=== PATIENT | male | born 1950 | race Hispanic/Latino ===

== ENCOUNTER 2017-02-11 12:59 | Observation (INO) | payer MEDICAID, OTHER ==
[~2017-02-11] VITALS: Ht 170.2 cm; Wt 73.6 kg
[~2017-02-11 12:59] MED LIST: GLIP5TAB11 PO
[2017-02-11 13:21] LABS: BASOPHILS % (AUTO) 0.3 % (0.0-5.0); HEMATOCRIT 26.1 % (42-54); LYMPHOCYTES % (AUTO) 18.1 % (21.0-51.0); MEAN CORPUSCULAR HEMOGLOBIN 30.6 pg (27.0-33.0); MEAN CORPUSCULAR HGB CONC 33.8 g/dL (32.0-36.0); MEAN CORPUSCULAR VOLUME 90.6 fL (79-99); MONOCYTES % (AUTO) 8.3 % (3.0-13.0); NEUTROPHILS % (AUTO) 69.3 % (40.0-77.0); PLATELET COUNT (AUTO) 338 K/uL (130-400); RED BLOOD CELL COUNT(AUTO) 2.88 MIL/uL (4.50-6.20); RED CELL DISTRIBUTION WIDTH 14.2 % (11.0-15.5)
[2017-02-11] MEDS ORDERED: IPRATROPIUM/ALBUTEROL SULFATE 3 ML SOLUTION IH ONE (13:26)
[2017-02-11 13:31] LABS: INR 1.03 (0.85-1.15); PARTIAL THROMBOPLASTIN TIME 31.7 SEC (26.3-35.5); PROTHROMBIN TIME 10.8 SEC (9.6-11.6)
[2017-02-11 13:33] LABS: CREATININE 2.1 mg/dL (0.5-1.5); POTASSIUM 4.8 mmol/L (3.5-5.1)
[2017-02-11 13:48] LABS: ALBUMIN 3.1 g/dL (3.5-5.0); BILIRUBIN,TOTAL 0.4 mg/dL (0.2-1.0); CREATINE KINASE MB 1.3 ng/mL (0.5-3.6); TOTAL PROTEIN, SERUM 7.7 g/dL (6.0-8.3)
[2017-02-11] MEDS ORDERED: FUROSEMIDE 10 MG/ML 4ML VIAL ONE ×2 (15:56→20:31)
[2017-02-11] MEDS ORDERED: NITROGLYCERIN 1GM/1 INCH PACKET TD ONE (15:56)
[2017-02-11] MEDS ORDERED: ACETAMINOPHEN-CODEINE 300/30MG TAB PO PRN (16:30)
[2017-02-11] MEDS ORDERED: ACETAMINOPHEN 325 MG TAB PO PRN ×2 (16:30)
[2017-02-11] MEDS ORDERED: ONDANSETRON HCL 4 MG/2 ML VIAL IV PRN (16:30)
[2017-02-11] MEDS ORDERED: GUAIFENESIN-DM 200/20 MG 10 ML PO PRN (16:30)
[2017-02-11] MEDS ORDERED: LACTULOSE 20 GM/30 ML UDCUP PO PRN (16:30)
[2017-02-11] MEDS ORDERED: MAG HYDROX/AL HYDROX/SIMETH ES 30 ML SUSP UDCUP PO PRN (16:30)
[2017-02-11] MEDS: IPRATROPIUM/ALBUTEROL SULFATE 3 ML SOLUTION IH SCH (18:24)
[2017-02-11] MEDS ORDERED: FUROSEMIDE 10 MG/ML 4ML VIAL IVP SCH (21:00)
[2017-02-11 21:20] VITALS: BP 172/58
[2017-02-11] MEDS ORDERED: HYDRALAZINE HCL 20 MG/ML VIAL IV PRN (22:00)
[2017-02-11] MEDS: NITROGLYCERIN 1GM/1 INCH PACKET TD SCH (22:30)
[2017-02-11 22:40] LABS: CREATINE KINASE MB 0.8 ng/mL (0.5-3.6); TROPONIN I 0.31 ng/mL (0.00-0.06)
[2017-02-12] VITALS: BP 179/58
[2017-02-12] MEDS: IPRATROPIUM/ALBUTEROL SULFATE 3 ML SOLUTION IH SCH ×4 (00:48→19:12)
[2017-02-12 04:00] VITALS: BP 174/68
[2017-02-12 05:22] LABS: HEMOGLOBIN A1C 5.5 % (4.0-6.0)
[2017-02-12 05:40] LABS: CREATINE KINASE MB 0.9 ng/mL (0.5-3.6); THYROID STIMULATING HORMONE 6.86 uIU/mL (0.36-3.74); TROPONIN I 0.36 ng/mL (0.00-0.06)
[2017-02-12] MEDS: NITROGLYCERIN 1GM/1 INCH PACKET TD SCH ×3 (06:04→20:56)
[2017-02-12] MEDS: INSULIN HUMULIN R 100 UNIT/ML 3ML SQ SCH ×4 (06:08→21:52)
[2017-02-12 07:34] VITALS: BP 163/57
[2017-02-12 08:46] LABS: POTASSIUM 4.4 mmol/L (3.5-5.1)
[2017-02-12] MEDS: PANTOPRAZOLE SODIUM 40 MG TABLET.DR PO SCH (09:21)
[2017-02-12] MEDS: ENOXAPARIN SODIUM 30 MG/0.3 ML SQ SCH (09:21)
[2017-02-12 11:29] VITALS: BP 161/56
[2017-02-12] MEDS ORDERED: AMLO5TAB2 PO (14:43)
[2017-02-12 16:00] VITALS: BP 180/58
[2017-02-12 19:55] VITALS: BP 155/51
[2017-02-13] MEDS: IPRATROPIUM/ALBUTEROL SULFATE 3 ML SOLUTION IH SCH ×3 (00:06→10:56)
[2017-02-13 00:19] VITALS: BP 169/53
[2017-02-13 04:08] VITALS: BP 136/50
[2017-02-13 04:21] LABS: CREATININE 2.2 mg/dL (0.5-1.5); POTASSIUM 4.9 mmol/L (3.5-5.1)
[2017-02-13] MEDS: NITROGLYCERIN 1GM/1 INCH PACKET TD SCH ×2 (05:31→13:45)
[2017-02-13] MEDS: INSULIN HUMULIN R 100 UNIT/ML 3ML SQ SCH ×2 (06:15→12:26)
[2017-02-13 07:00] VITALS: BP 164/56
[2017-02-13] MEDS ORDERED: GLIPIZIDE 5 MG TABLET PO SCH (09:00)
[2017-02-13] MEDS ORDERED: FUROSEMIDE 10 MG/ML 4ML VIAL IVP SCH (09:00)
[2017-02-13] MEDS ORDERED: AMLODIPINE BESYLATE 5 MG TAB PO SCH ×2 (09:00)
[2017-02-13] MEDS ORDERED: FUROSEMIDE 20 MG TABLET PO SCH (09:00)
[2017-02-13] MEDS: PANTOPRAZOLE SODIUM 40 MG TABLET.DR PO SCH (10:01)
[2017-02-13] MEDS: ENOXAPARIN SODIUM 30 MG/0.3 ML SQ SCH (10:03)
[2017-02-13 11:00] VITALS: BP 163/58
== END 2017-02-13 15:15 | disposition home or self-care (01) ==
LOC: EDH 12:59 → EDHIP 13:00 → 2AH 20:48
PROVIDERS: ADMIT Family Medicine; ATTEND Family Medicine
DX: R06.02 Shortness of breath (principal); R07.89 Other chest pain; I12.9 Hypertensive chronic kidney disease with stage 1 through stage 4 chronic kidney disease, or unspecified chronic kidney disease; N18.9 Chronic kidney disease, unspecified; E11.22 Type 2 diabetes mellitus with diabetic chronic kidney disease; D64.9 Anemia, unspecified; Z83.3 Family history of diabetes mellitus
CPT/HCPCS: 36415 ×3; 71020; 80048 ×2; 80053; 82550 ×3; 82553 ×3; 82948 ×4; 83036; 83874 ×2; 83880; 84443; 84484 ×3; 85025; 85610; 85730; 87804 ×2; 93005; 93306; 94640 ×9; 94664; 96372 ×2; 96374; 99285; G0378 ×50; J0360; J1650 ×2; J1815 ×3; J1940 ×3

== ENCOUNTER 2017-04-08 23:23 | Inpatient (IN) | payer MEDICARE ==
[~2017-04-08] VITALS: Ht 170.2 cm; Wt 79.4 kg
[~2017-04-08 23:23] MED LIST changes: +AMLO5TAB2 PO
[2017-04-08] MEDS ORDERED: ASPIRIN 325 MG TABLET ONE (23:43)
[2017-04-08 23:49] LABS: BASOPHILS % (AUTO) 0.2 % (0.0-5.0); EOSINOPHILS % (AUTO) 0.9 % (0.0-8.0); HEMATOCRIT 27.4 % (42-54); LYMPHOCYTES % (AUTO) 11.9 % (21.0-51.0); MEAN CORPUSCULAR HEMOGLOBIN 30.4 pg (27.0-33.0); MEAN CORPUSCULAR HGB CONC 33.4 g/dL (32.0-36.0); MONOCYTES % (AUTO) 7.4 % (3.0-13.0); NEUTROPHILS % (AUTO) 79.6 % (40.0-77.0); PLATELET COUNT (AUTO) 186 K/uL (130-400); RED BLOOD CELL COUNT(AUTO) 3.02 MIL/uL (4.50-6.20); WHITE BLOOD COUNT (AUTO) 12.6 K/uL (4.8-10.8)
[2017-04-08 23:54] LABS: CREATININE 1.9 mg/dL (0.5-1.5); POTASSIUM 4.9 mmol/L (3.5-5.1)
[2017-04-09 00:06] LABS: INR 0.99 (0.85-1.15); PARTIAL THROMBOPLASTIN TIME 29.8 SEC (26.3-35.5); PROTHROMBIN TIME 10.4 SEC (9.6-11.6)
[2017-04-09] MEDS ORDERED: NITROGLYCERIN 0.4 MG SL TAB SL ONE (00:07)
[2017-04-09 00:23] LABS: ALBUMIN 3.3 g/dL (3.5-5.0); BILIRUBIN,TOTAL 0.3 mg/dL (0.2-1.0); CREATINE KINASE MB 1.2 ng/mL (0.5-3.6)
[2017-04-09] MEDS ORDERED: NITROGLYCERIN 1GM/1 INCH PACKET TD ONE ×2 (01:53→15:55)
[2017-04-09] MEDS ORDERED: METOPROLOL TARTRATE 50 MG TAB ONE (01:53)
[2017-04-09] MEDS ORDERED: ONDANSETRON HCL 4 MG/2 ML VIAL IV PRN (06:30)
[2017-04-09 06:40] LABS: CREATINE KINASE MB 1.6 ng/mL (0.5-3.6)
[2017-04-09] MEDS ORDERED: ENOXAPARIN SODIUM 40 MG/0.4 ML SYRINGE SQ ONE (07:37)
[2017-04-09] MEDS ORDERED: ASPIRIN 325 MG TABLET ONE (07:37)
[2017-04-09] MEDS ORDERED: ENOXAPARIN SODIUM 40 MG/0.4 ML SYRINGE SQ SCH (09:00)
[2017-04-09 10:12] LABS: POTASSIUM 5.5 mmol/L (3.5-5.1)
[2017-04-09 12:10] LABS: CREATINE KINASE MB 1.7 ng/mL (0.5-3.6)
[2017-04-09] MEDS: NITROGLYCERIN 1GM/1 INCH PACKET TD SCH ×3 (15:03→21:32)
[2017-04-09] MEDS: INSULIN HUMULIN R 100 UNIT/ML 3ML SQ SCH ×4 (15:03→21:00)
[2017-04-09] MEDS: ASPIRIN 325 MG TABLET PO SCH (15:05)
[2017-04-09] MEDS ORDERED: METOPROLOL TARTRATE 25 MG TAB ONE (16:05)
[2017-04-09] MEDS ORDERED: SODIUM POLYSTYRENE SULFONATE 15 GM/60 ML ML ONE (16:17)
[2017-04-09] MEDS: METOPROLOL TARTRATE 25 MG TAB PO SCH ×2 (17:00→19:45)
[2017-04-09] MEDS: FAMOTIDINE/PF 20 MG/2 ML VIAL IV SCH (17:00)
[2017-04-09 17:10] VITALS: BP 195/65
[2017-04-09] MEDS: HYDRALAZINE HCL 20 MG/ML VIAL IV PRN (17:15)
[2017-04-09] MEDS ORDERED: ASPI-1197 PO (17:22)
[2017-04-09] MEDS ORDERED: FERR-82 PO (17:22)
[2017-04-09] MEDS ORDERED: TERA5CAP4 PO (17:22)
[2017-04-09 18:12] VITALS: BP 158/63
[2017-04-09 19:53] VITALS: BP 161/58
[2017-04-09 23:36] VITALS: BP 136/61
[2017-04-10 03:30] VITALS: BP 121/42
[2017-04-10 04:29] LABS: CREATINE KINASE MB 2.5 ng/mL (0.5-3.6); CREATININE 2.1 mg/dL (0.5-1.5); POTASSIUM 4.9 mmol/L (3.5-5.1)
[2017-04-10 05:13] LABS: TROPONIN I 0.75 ng/mL (0.00-0.06)
[2017-04-10] MEDS: INSULIN HUMULIN R 100 UNIT/ML 3ML SQ SCH ×4 (05:39→22:12)
[2017-04-10] MEDS: NITROGLYCERIN 1GM/1 INCH PACKET TD SCH ×3 (05:51→22:18)
[2017-04-10 08:00] VITALS: BP 162/58
[2017-04-10] MEDS: REGADENOSON 0.4 MG/5 ML PF SYG IVP SCH ×2 (09:45→17:55)
[2017-04-10] MEDS ORDERED: LORAZEPAM 2 MG/ML 1 ML VIAL ONE (09:50)
[2017-04-10] MEDS ORDERED: LORAZEPAM 2 MG/ML 1 ML VIAL IM SCH (10:00)
[2017-04-10 12:23] VITALS: BP 161/64
[2017-04-10] MEDS: METOPROLOL TARTRATE 25 MG TAB PO SCH ×2 (15:03→21:08)
[2017-04-10] MEDS: ASPIRIN 325 MG TABLET PO SCH (15:04)
[2017-04-10] MEDS: ENOXAPARIN SODIUM 40 MG/0.4 ML SYRINGE SQ SCH (15:06)
[2017-04-10] MEDS: FAMOTIDINE/PF 20 MG/2 ML VIAL IV SCH (15:07)
[2017-04-10 16:00] VITALS: BP 158/44
[2017-04-10 19:50] VITALS: BP 171/54
[2017-04-10 23:30] VITALS: BP 176/85
[2017-04-11] MEDS: HYDRALAZINE HCL 20 MG/ML VIAL IV PRN (00:26)
[2017-04-11 00:55] LABS: APPEARANCE,URINE Turbid (CLEAR); BILIRUBIN,URINE Negative (NEGATIVE); COLOR,URINE Yellow (YELLOW); GLUCOSE, URINE (UA) Negative (NEGATIVE); KETONES,URINE Negative (NEGATIVE); LEUKOCYTE ESTERASE ,URINE Large (NEGATIVE); NITRATE,URINE Negative (NEGATIVE); OCCULT BLOOD,URINE Large (NEGATIVE); PROTEIN,URINE POS 2+ (NEGATIVE)
[2017-04-11 01:21] LABS: BACTERIA,URINE Moderate /HPF (None Seen); RBC,URINE 26-50 /HPF (0-1); WBC,URINE Full Field /HPF (0-1)
[2017-04-11 01:22] LABS: SQUAMOUS EPITHELIAL CELL,UR Rare /LPF (0-2)
[2017-04-11 03:05] VITALS: BP 128/59
[2017-04-11 04:08] LABS: HEMATOCRIT 26.7 % (42-54); MEAN CORPUSCULAR HEMOGLOBIN 30.3 pg (27.0-33.0); MEAN CORPUSCULAR HGB CONC 33.7 g/dL (32.0-36.0); PLATELET COUNT (AUTO) 250 K/uL (130-400); RED BLOOD CELL COUNT(AUTO) 2.96 MIL/uL (4.50-6.20); RED CELL DISTRIBUTION WIDTH 14.2 % (11.0-15.5); WHITE BLOOD COUNT (AUTO) 23.6 K/uL (4.8-10.8)
[2017-04-11 04:20] LABS: CREATININE 2.4 mg/dL (0.5-1.5); POTASSIUM 4.4 mmol/L (3.5-5.1)
[2017-04-11 04:46] LABS: % IRON SATURATION 7.4 % (30-44)
[2017-04-11] MEDS: NITROGLYCERIN 1GM/1 INCH PACKET TD SCH ×3 (06:42→16:50)
[2017-04-11] MEDS: INSULIN HUMULIN R 100 UNIT/ML 3ML SQ SCH ×4 (06:51→21:00)
[2017-04-11 08:02] VITALS: BP 173/70
[2017-04-11] MEDS ORDERED: IPRATROPIUM/ALBUTEROL SULFATE 3 ML SOLUTION IH PRN (08:45)
[2017-04-11] MEDS ORDERED: LEVOFLOXACIN 500 MG/D5W 100 ML 100 ML IV SCH ×2 (08:45→08:51)
[2017-04-11] MEDS ORDERED: ACETAMINOPHEN 325 MG TAB ONE (09:41)
[2017-04-11] MEDS: ASPIRIN 325 MG TABLET PO SCH (09:45)
[2017-04-11] MEDS: AMLODIPINE BESYLATE 5 MG TAB PO SCH (09:45)
[2017-04-11] MEDS: FOLIC ACID/VITAMIN B COMP W-C 1 MG CAPSULE PO SCH (09:45)
[2017-04-11] MEDS: TERAZOSIN HCL 5 MG CAPSULE PO SCH (09:45)
[2017-04-11] MEDS: METOPROLOL TARTRATE 25 MG TAB PO SCH ×2 (09:45→20:38)
[2017-04-11] MEDS: FERROUS SULFATE 325 MG TABLET.DR PO SCH (09:45)
[2017-04-11] MEDS: ENOXAPARIN SODIUM 40 MG/0.4 ML SYRINGE SQ SCH (09:49)
[2017-04-11] MEDS: FAMOTIDINE/PF 20 MG/2 ML VIAL IV SCH (09:54)
[2017-04-11 11:39] VITALS: BP 115/74
[2017-04-11 16:00] VITALS: BP 98/58
[2017-04-11] MEDS ORDERED: ACETAMINOPHEN 325 MG TAB PO PRN ×2 (19:15)
[2017-04-11 19:50] VITALS: BP 110/69
[2017-04-11] MEDS: CEFTRIAXONE SODIUM 1 GM IVP SCH (20:37)
[2017-04-11] MEDS ORDERED: CEFTRIAXONE 1GM/D5W 50ML 50 ML IV SCH (21:00)
[2017-04-11 23:48] VITALS: BP 135/49
[2017-04-12] MEDS: NITROGLYCERIN 1GM/1 INCH PACKET TD SCH ×3 (01:36→16:46)
[2017-04-12 03:47] VITALS: BP 153/47
[2017-04-12 04:27] LABS: HEMATOCRIT 22.5 % (42-54); MEAN CORPUSCULAR HEMOGLOBIN 31.5 pg (27.0-33.0); PLATELET COUNT (AUTO) 200 K/uL (130-400); RED CELL DISTRIBUTION WIDTH 13.6 % (11.0-15.5); WHITE BLOOD COUNT (AUTO) 12.7 K/uL (4.8-10.8)
[2017-04-12 04:28] LABS: CREATININE 3.2 mg/dL (0.5-1.5); POTASSIUM 3.9 mmol/L (3.5-5.1)
[2017-04-12 04:37] LABS: BAND NEUTROPHILS % (MANUAL) 3 % (0-2); LYMPHOCYTES % (MANUAL) 10 % (22-44); MAN.DIFF COMMENT-IMPRESSION MANUAL DIFFERENTIAL; MONOCYTES % (MANUAL) 2 % (2-9); PLATELET MORPHOLOGY COMMENT ADEQUATE; SEGMENTED NEUTROPHILS % 85 % (40-70)
[2017-04-12] MEDS: INSULIN HUMULIN R 100 UNIT/ML 3ML SQ SCH ×4 (06:21→21:18)
[2017-04-12 07:27] VITALS: BP_SYST 164; BP_DIAS 51; BP_DIAS 75
[2017-04-12] MEDS: ASPIRIN 325 MG TABLET PO SCH (08:24)
[2017-04-12] MEDS: TERAZOSIN HCL 5 MG CAPSULE PO SCH (08:24)
[2017-04-12] MEDS: FERROUS SULFATE 325 MG TABLET.DR PO SCH (08:24)
[2017-04-12] MEDS: FOLIC ACID/VITAMIN B COMP W-C 1 MG CAPSULE PO SCH (08:25)
[2017-04-12] MEDS: METOPROLOL TARTRATE 25 MG TAB PO SCH ×2 (08:25→20:52)
[2017-04-12] MEDS: FAMOTIDINE/PF 20 MG/2 ML VIAL IV SCH (08:25)
[2017-04-12] MEDS: AMLODIPINE BESYLATE 5 MG TAB PO SCH (08:25)
[2017-04-12] MEDS: ENOXAPARIN SODIUM 40 MG/0.4 ML SYRINGE SQ SCH (08:26)
[2017-04-12] MEDS ORDERED: LEVOFLOXACIN 250 MG/D5W 50ML 50 ML IVPB SCH (09:00)
[2017-04-12 11:12] VITALS: BP 134/41
[2017-04-12] MEDS ORDERED: SODIUM CHLORIDE 0.9% 500ML 500 ML IV SCH (11:55)
[2017-04-12 12:50] LABS: HEMATOCRIT 22.9 % (42-54); MEAN CORPUSCULAR HEMOGLOBIN 31.6 pg (27.0-33.0); MEAN CORPUSCULAR HGB CONC 34.9 g/dL (32.0-36.0); MEAN CORPUSCULAR VOLUME 90.6 fL (79-99); PLATELET COUNT (AUTO) 220 K/uL (130-400); RED BLOOD CELL COUNT(AUTO) 2.53 MIL/uL (4.50-6.20); RED CELL DISTRIBUTION WIDTH 13.8 % (11.0-15.5); WHITE BLOOD COUNT (AUTO) 12.5 K/uL (4.8-10.8)
[2017-04-12 13:02] LABS: CREATININE 3.7 mg/dL (0.5-1.5); POTASSIUM 4.1 mmol/L (3.5-5.1)
[2017-04-12 13:08] LABS: INR 1.06 (0.85-1.15); PARTIAL THROMBOPLASTIN TIME 38.1 SEC (26.3-35.5); PROTHROMBIN TIME 11.1 SEC (9.6-11.6)
[2017-04-12 16:12] VITALS: BP 120/45
[2017-04-12 19:27] VITALS: BP 154/50
[2017-04-12] MEDS: CEFTRIAXONE SODIUM 1 GM IVP SCH (20:51)
[2017-04-12 23:38] VITALS: BP 144/49
[2017-04-13 03:42] VITALS: BP 154/56
[2017-04-13 04:03] LABS: CREATININE 3.4 mg/dL (0.5-1.5); MAGNESIUM 2.2 mg/dL (1.80-2.40); PHOSPHORUS 5.3 mg/dL (2.5-4.9); POTASSIUM 3.7 mmol/L (3.5-5.1)
[2017-04-13 04:28] LABS: HEMATOCRIT 21.6 % (42-54); MEAN CORPUSCULAR HEMOGLOBIN 31.7 pg (27.0-33.0); MEAN CORPUSCULAR HGB CONC 35.6 g/dL (32.0-36.0); PLATELET COUNT (AUTO) 216 K/uL (130-400); RED BLOOD CELL COUNT(AUTO) 2.43 MIL/uL (4.50-6.20); RED CELL DISTRIBUTION WIDTH 13.7 % (11.0-15.5); WHITE BLOOD COUNT (AUTO) 8.3 K/uL (4.8-10.8)
[2017-04-13 04:30] LABS: BASOPHILS % (MANUAL) 1 % (0-2); EOSINOPHILS % (MANUAL) 1 % (1-6); LYMPHOCYTES % (MANUAL) 17 % (22-44); MAN.DIFF COMMENT-IMPRESSION MANUAL DIFFERENTIAL; MONOCYTES % (MANUAL) 5 % (2-9); REACTIVE LYMPHOCYTES 1 % (0-0); SEGMENTED NEUTROPHILS % 75 % (40-70)
[2017-04-13 04:31] LABS: PLATELET MORPHOLOGY COMMENT ADEQUATE
[2017-04-13] MEDS: NITROGLYCERIN 1GM/1 INCH PACKET TD SCH ×3 (05:23→17:22)
[2017-04-13] MEDS: INSULIN HUMULIN R 100 UNIT/ML 3ML SQ SCH ×4 (06:39→21:14)
[2017-04-13 07:00] VITALS: BP 146/56
[2017-04-13] MEDS: FAMOTIDINE/PF 20 MG/2 ML VIAL IV SCH (09:41)
[2017-04-13] MEDS: ASPIRIN 325 MG TABLET PO SCH (09:41)
[2017-04-13] MEDS: TERAZOSIN HCL 5 MG CAPSULE PO SCH (09:42)
[2017-04-13] MEDS: FERROUS SULFATE 325 MG TABLET.DR PO SCH (09:42)
[2017-04-13] MEDS: METOPROLOL TARTRATE 25 MG TAB PO SCH ×2 (09:42→21:13)
[2017-04-13] MEDS: AMLODIPINE BESYLATE 5 MG TAB PO SCH (09:42)
[2017-04-13] MEDS: FOLIC ACID/VITAMIN B COMP W-C 1 MG CAPSULE PO SCH (09:42)
[2017-04-13] MEDS: ENOXAPARIN SODIUM 40 MG/0.4 ML SYRINGE SQ SCH (09:44)
[2017-04-13] MEDS ORDERED: EPOETIN ALFA 20,000 UNIT/ML VIAL SQ SCH (10:30)
[2017-04-13 11:00] VITALS: BP 139/61
[2017-04-13 16:00] VITALS: BP 133/44
[2017-04-13 19:30] VITALS: BP 128/48
[2017-04-13] MEDS: CEFTRIAXONE SODIUM 1 GM IVP SCH (21:12)
[2017-04-13 23:14] VITALS: BP 128/41
[2017-04-14] MEDS: NITROGLYCERIN 1GM/1 INCH PACKET TD SCH ×3 (00:07→17:20)
[2017-04-14 03:56] VITALS: BP 140/30
[2017-04-14 04:11] LABS: HEMATOCRIT 23.3 % (42-54); MEAN CORPUSCULAR HEMOGLOBIN 31.7 pg (27.0-33.0); MEAN CORPUSCULAR HGB CONC 35.3 g/dL (32.0-36.0); PLATELET COUNT (AUTO) 245 K/uL (130-400); RED BLOOD CELL COUNT(AUTO) 2.59 MIL/uL (4.50-6.20); RED CELL DISTRIBUTION WIDTH 13.7 % (11.0-15.5); WHITE BLOOD COUNT (AUTO) 6.4 K/uL (4.8-10.8)
[2017-04-14 04:28] LABS: CREATININE 3.1 mg/dL (0.5-1.5)
[2017-04-14 04:54] LABS: % IRON SATURATION 19.7 % (30-44)
[2017-04-14] MEDS: INSULIN HUMULIN R 100 UNIT/ML 3ML SQ SCH ×5 (06:02→21:27)
[2017-04-14 07:00] VITALS: BP 143/56
[2017-04-14] MEDS: METOPROLOL TARTRATE 25 MG TAB PO SCH ×2 (08:49→21:25)
[2017-04-14] MEDS: TERAZOSIN HCL 5 MG CAPSULE PO SCH (08:49)
[2017-04-14] MEDS: FAMOTIDINE/PF 20 MG/2 ML VIAL IV SCH (08:49)
[2017-04-14] MEDS: FOLIC ACID/VITAMIN B COMP W-C 1 MG CAPSULE PO SCH (08:49)
[2017-04-14] MEDS: ASPIRIN 325 MG TABLET PO SCH (08:49)
[2017-04-14] MEDS: FERROUS SULFATE 325 MG TABLET.DR PO SCH (08:49)
[2017-04-14] MEDS: AMLODIPINE BESYLATE 5 MG TAB PO SCH (08:49)
[2017-04-14] MEDS: ENOXAPARIN SODIUM 40 MG/0.4 ML SYRINGE SQ SCH (08:51)
[2017-04-14 11:00] VITALS: BP 132/62
[2017-04-14] MEDS ORDERED: COMPOUND IV MISC 1 EACH IVSOLN MISC PRN (13:15)
[2017-04-14] MEDS: IRON SUCROSE COMPLEX 100 MG in SODIUM CHLORIDE 0.9% 50 ML IV SCH (14:43)
[2017-04-14 16:00] VITALS: BP 145/48
[2017-04-14 19:41] VITALS: BP 147/42
[2017-04-14] MEDS: CEFTRIAXONE SODIUM 1 GM IVP SCH (21:25)
[2017-04-14 23:22] VITALS: BP 154/53
[2017-04-15] MEDS: NITROGLYCERIN 1GM/1 INCH PACKET TD SCH ×2 (00:09→08:58)
[2017-04-15 04:08] VITALS: BP 141/60
[2017-04-15 04:08] LABS: CREATININE 2.9 mg/dL (0.5-1.5); POTASSIUM 4.1 mmol/L (3.5-5.1)
[2017-04-15 04:15] LABS: HEMATOCRIT 23.1 % (42-54); MEAN CORPUSCULAR HEMOGLOBIN 30.7 pg (27.0-33.0); MEAN CORPUSCULAR HGB CONC 34.4 g/dL (32.0-36.0); MEAN CORPUSCULAR VOLUME 89.2 fL (79-99); PLATELET COUNT (AUTO) 243 K/uL (130-400); RED BLOOD CELL COUNT(AUTO) 2.59 MIL/uL (4.50-6.20); RED CELL DISTRIBUTION WIDTH 13.7 % (11.0-15.5); WHITE BLOOD COUNT (AUTO) 6.6 K/uL (4.8-10.8)
[2017-04-15] MEDS: INSULIN HUMULIN R 100 UNIT/ML 3ML SQ SCH ×2 (06:45→12:15)
[2017-04-15 08:00] VITALS: BP 175/63
[2017-04-15] MEDS: TERAZOSIN HCL 5 MG CAPSULE PO SCH (08:56)
[2017-04-15] MEDS: IRON SUCROSE COMPLEX 100 MG in SODIUM CHLORIDE 0.9% 50 ML IV SCH (08:56)
[2017-04-15] MEDS: FOLIC ACID/VITAMIN B COMP W-C 1 MG CAPSULE PO SCH (08:56)
[2017-04-15] MEDS: AMLODIPINE BESYLATE 5 MG TAB PO SCH (08:56)
[2017-04-15] MEDS: ASPIRIN 325 MG TABLET PO SCH (08:56)
[2017-04-15] MEDS: METOPROLOL TARTRATE 25 MG TAB PO SCH (08:56)
[2017-04-15] MEDS: FAMOTIDINE/PF 20 MG/2 ML VIAL IV SCH (08:57)
[2017-04-15] MEDS: FERROUS SULFATE 325 MG TABLET.DR PO SCH (08:58)
[2017-04-15] MEDS ORDERED: ENOXAPARIN SODIUM 60 MG/0.6 ML SQ SCH (09:00)
[2017-04-15] MEDS ORDERED: METO25 PO (09:24)
[2017-04-15 11:57] VITALS: BP 134/51
== END 2017-04-15 16:33 | disposition home or self-care (01) | DRG 871 ==
LOC: EDH 23:23 → OBSVTOIN 04-09 01:38 → EDHIP 04-09 01:38 → 2AH 04-09 16:11
PROVIDERS: ADMIT Internal Medicine; ATTEND Internal Medicine
DX: A41.9 Sepsis, unspecified organism (principal); J18.9 Pneumonia, unspecified organism; I21.9 Acute myocardial infarction, unspecified; I13.0 Hypertensive heart and chronic kidney disease with heart failure and stage 1 through stage 4 chronic kidney disease, or unspecified chronic kidney disease; N17.9 Acute kidney failure, unspecified; E11.21 Type 2 diabetes mellitus with diabetic nephropathy; I50.32 Chronic diastolic (congestive) heart failure; N39.0 Urinary tract infection, site not specified; E11.51 Type 2 diabetes mellitus with diabetic peripheral angiopathy without gangrene; D63.1 Anemia in chronic kidney disease; E11.22 Type 2 diabetes mellitus with diabetic chronic kidney disease; I25.119 Atherosclerotic heart disease of native coronary artery with unspecified angina pectoris; E78.5 Hyperlipidemia, unspecified; I65.23 Occlusion and stenosis of bilateral carotid arteries; N18.3 Chronic kidney disease, stage 3 (moderate); I25.2 Old myocardial infarction
CPT/HCPCS: 36415; 71045; 76770; 78452; 80048; 80053; 80061; 81001; 82550; 82553; 82728; 82948; 83540; 83550; 83735; 83874; 83880; 84100; 84484; 85025; 85027; 85378; 85610; 85730; 87040; 87088; 87186; 93005; 93017; 93880; 94664; 96374; A4218; A9500; J0360; J0696; J0885; J1650; J1756; J1815; J1956; J2060; J2785; J3490

== ENCOUNTER 2017-10-28 10:00 | Emergency (ER) | payer MEDICARE ==
[~2017-10-28 10:00] MED LIST changes: -AMLO5TAB2 PO; +AMLO5TAB7 PO; +ASPI-1197 PO; +FERR-82 PO; +METO25 PO; +TERA5CAP4 PO
[2017-10-28] MEDS ORDERED: LISINOPRIL 5 MG TABLET ONE (10:54)
[2017-10-28 10:56] LABS: BASOPHILS % (AUTO) 0.4 % (0.0-5.0); HEMATOCRIT 32.9 % (42-54); LYMPHOCYTES % (AUTO) 26.6 % (21.0-51.0); MEAN CORPUSCULAR HEMOGLOBIN 32.4 pg (27.0-33.0); MEAN CORPUSCULAR HGB CONC 34.2 g/dL (32.0-36.0); MEAN CORPUSCULAR VOLUME 94.7 fL (79-99); MONOCYTES % (AUTO) 6.9 % (3.0-13.0); NEUTROPHILS % (AUTO) 63.1 % (40.0-77.0); PLATELET COUNT (AUTO) 296 K/uL (130-400); RED BLOOD CELL COUNT(AUTO) 3.47 MIL/uL (4.50-6.20); RED CELL DISTRIBUTION WIDTH 13.7 % (11.0-15.5)
[2017-10-28] MEDS ORDERED: LABETALOL HCL 5 MG/ML 20ML VIAL IV ONE (11:00)
[2017-10-28 11:03] LABS: CREATININE 2.3 mg/dL (0.5-1.5); POTASSIUM 5.8 mmol/L (3.5-5.1)
[2017-10-28 11:09] LABS: ALBUMIN 3.5 g/dL (3.5-5.0); BILIRUBIN,TOTAL 0.5 mg/dL (0.2-1.0); TOTAL PROTEIN, SERUM 7.4 g/dL (6.0-8.3)
[2017-10-28 11:41] LABS: INR 0.93 (0.85-1.15); PARTIAL THROMBOPLASTIN TIME 27.1 SEC (26.3-35.5); PROTHROMBIN TIME 9.8 SEC (9.6-11.6)
[2017-10-28 11:49] LABS: AMPHET/METH SCREEN,URINE NEGATIVE (NEGATIVE); BARBITURATE SCREEN, URINE NEGATIVE (NEGATIVE); BENZODIAZEPINES SCREEN,URINE NEGATIVE (NEGATIVE); CANNABINOID SCREEN,URINE NEGATIVE (NEGATIVE); COCAINE SCREEN,URINE POSITIVE (NEGATIVE); OPIATE SCREEN,URINE NEGATIVE (NEGATIVE); PHENCYCLIDINE SCREEN,URINE NEGATIVE (NEGATIVE)
[2017-10-28] MEDS ORDERED: FUROSEMIDE 20 MG TABLET ONE (12:45)
== END 2017-10-28 13:03 | disposition home or self-care (01) ==
LOC: EDH 10:00
DX: I16.1 Hypertensive emergency (principal); I12.9 Hypertensive chronic kidney disease with stage 1 through stage 4 chronic kidney disease, or unspecified chronic kidney disease; N18.9 Chronic kidney disease, unspecified; I24.8 Other forms of acute ischemic heart disease; F14.10 Cocaine abuse, uncomplicated; I25.10 Atherosclerotic heart disease of native coronary artery without angina pectoris
CPT/HCPCS: 36415; 71045; 80053; 80305; 83880; 84484; 85025; 85610; 85730; 93005; 96374; 99291; J3490

== ENCOUNTER 2017-11-01 20:07 | Inpatient (IN) | payer MEDICARE ==
[~2017-11-01] VITALS: Ht 170.2 cm; Wt 77.1 kg
[2017-11-01] MEDS ORDERED: ASPIRIN 325 MG TABLET ONE (20:19)
[2017-11-01 20:31] LABS: BASOPHILS % (AUTO) 0.3 % (0.0-5.0); EOSINOPHILS % (AUTO) 1.5 % (0.0-8.0); HEMATOCRIT 29.6 % (42-54); LYMPHOCYTES % (AUTO) 35.4 % (21.0-51.0); MEAN CORPUSCULAR HEMOGLOBIN 31.2 pg (27.0-33.0); MEAN CORPUSCULAR HGB CONC 33.4 g/dL (32.0-36.0); MEAN CORPUSCULAR VOLUME 93.5 fL (79-99); MONOCYTES % (AUTO) 9.3 % (3.0-13.0); NEUTROPHILS % (AUTO) 53.5 % (40.0-77.0); PLATELET COUNT (AUTO) 188 K/uL (130-400); RED BLOOD CELL COUNT(AUTO) 3.17 MIL/uL (4.50-6.20); RED CELL DISTRIBUTION WIDTH 13.6 % (11.0-15.5); WHITE BLOOD COUNT (AUTO) 5.8 K/uL (4.8-10.8)
[2017-11-01 20:43] LABS: AMPHET/METH SCREEN,URINE NEGATIVE (NEGATIVE); BARBITURATE SCREEN, URINE NEGATIVE (NEGATIVE); BENZODIAZEPINES SCREEN,URINE NEGATIVE (NEGATIVE); CANNABINOID SCREEN,URINE NEGATIVE (NEGATIVE); COCAINE SCREEN,URINE POSITIVE (NEGATIVE); CREATININE 2.5 mg/dL (0.5-1.5); OPIATE SCREEN,URINE NEGATIVE (NEGATIVE); PHENCYCLIDINE SCREEN,URINE NEGATIVE (NEGATIVE)
[2017-11-01 20:45] LABS: INR 0.97 (0.85-1.15); PARTIAL THROMBOPLASTIN TIME 29.2 SEC (26.3-35.5); PROTHROMBIN TIME 10.2 SEC (9.6-11.6)
[2017-11-01 20:49] LABS: APPEARANCE,URINE Cloudy (CLEAR); BILIRUBIN,URINE Negative (NEGATIVE); COLOR,URINE Yellow (YELLOW); GLUCOSE, URINE (UA) Negative (NEGATIVE); KETONES,URINE Negative (NEGATIVE); LEUKOCYTE ESTERASE ,URINE Large (NEGATIVE); NITRATE,URINE Positive (NEGATIVE); OCCULT BLOOD,URINE Moderate (NEGATIVE); PH,URINE 5.5 (5.0-8.0); PROTEIN,URINE 300 (NEGATIVE); UROBILINOGEN,URINE 0.2 mg/dL (0.2-1.0)
[2017-11-01 21:00] LABS: BILIRUBIN,TOTAL 0.2 mg/dL (0.2-1.0); CREATINE KINASE MB 1.4 ng/mL (0.5-3.6); TOTAL PROTEIN, SERUM 6.7 g/dL (6.0-8.3)
[2017-11-01 21:04] LABS: WBC,URINE >100 /HPF (0-1)
[2017-11-01 21:05] LABS: BACTERIA,URINE Moderate /HPF (None Seen); SQUAMOUS EPITHELIAL CELL,UR Rare /HPF (0-2)
[2017-11-01] MEDS ORDERED: IPRATROPIUM/ALBUTEROL SULFATE 3 ML SOLUTION IH ONE (21:20)
[2017-11-01] MEDS ORDERED: CEFTRIAXONE SODIUM 1 GM ONE (23:16)
[2017-11-02] MEDS ORDERED: ACETAMINOPHEN 325 MG TAB PO PRN (00:15)
[2017-11-02] MEDS ORDERED: GLUCAGON 1MG KIT 1 MG ML IM PRN (00:15)
[2017-11-02] MEDS ORDERED: DEXTROSE 50%-WATER 50 ML DISP.SYRIN IV PRN (00:15)
[2017-11-02] MEDS ORDERED: CLONIDINE HCL 0.1 MG TABLET ONE ×2 (00:17→03:27)
[2017-11-02] MEDS: IPRATROPIUM/ALBUTEROL SULFATE 3 ML SOLUTION IH SCH ×5 (01:26→23:16)
[2017-11-02] MEDS ORDERED: IPRATROPIUM/ALBUTEROL SULFATE 3 ML SOLUTION IH ONE (01:29)
[2017-11-02 03:00] VITALS: BP 180/71
[2017-11-02] MEDS ORDERED: CLONIDINE HCL 0.1 MG TABLET PO PRN (03:45)
[2017-11-02 05:45] LABS: BASOPHILS % (AUTO) 0.3 % (0.0-5.0); EOSINOPHILS % (AUTO) 0.8 % (0.0-8.0); HEMATOCRIT 25.9 % (42-54); LYMPHOCYTES % (AUTO) 23.1 % (21.0-51.0); MEAN CORPUSCULAR HEMOGLOBIN 32.6 pg (27.0-33.0); MEAN CORPUSCULAR HGB CONC 34.7 g/dL (32.0-36.0); MEAN CORPUSCULAR VOLUME 93.9 fL (79-99); MONOCYTES % (AUTO) 6.8 % (3.0-13.0); PLATELET COUNT (AUTO) 184 K/uL (130-400); RED BLOOD CELL COUNT(AUTO) 2.76 MIL/uL (4.50-6.20); RED CELL DISTRIBUTION WIDTH 13.7 % (11.0-15.5); WHITE BLOOD COUNT (AUTO) 5.4 K/uL (4.8-10.8)
[2017-11-02 06:02] LABS: ALBUMIN 2.7 g/dL (3.5-5.0); BILIRUBIN,TOTAL 0.2 mg/dL (0.2-1.0); CREATININE 2.6 mg/dL (0.5-1.5); POTASSIUM 4.7 mmol/L (3.5-5.1); TOTAL PROTEIN, SERUM 5.9 g/dL (6.0-8.3)
[2017-11-02 07:00] VITALS: BP 171/76
[2017-11-02] MEDS: INSULIN R PO SS1 SQ SCH ×4 (07:30→21:00)
[2017-11-02] MEDS ORDERED: FUROSEMIDE 20 MG TABLET PO SCH (09:00)
[2017-11-02] MEDS: AMLODIPINE BESYLATE 5 MG TAB PO SCH (10:31)
[2017-11-02] MEDS: TERAZOSIN HCL 5 MG CAPSULE PO SCH (10:31)
[2017-11-02] MEDS: METOPROLOL TARTRATE 25 MG TAB PO SCH ×2 (10:33→21:12)
[2017-11-02] MEDS: ASPIRIN 81MG TAB.CHEW PO SCH (10:34)
[2017-11-02] MEDS: FERROUS SULFATE 325 MG TABLET.DR PO SCH (10:34)
[2017-11-02] MEDS: GLIPIZIDE 5 MG TABLET PO SCH (10:46)
[2017-11-02] MEDS ORDERED: FUROSEMIDE 10 MG/ML 4ML VIAL ONE (10:57)
[2017-11-02] MEDS: FUROSEMIDE 10 MG/ML 4ML VIAL IV SCH (11:00)
[2017-11-02 11:17] LABS: CHOLESTEROL 92 mg/dL (<200); HDL CHOLESTEROL 25 mg/dL (29-71); LDL DIRECT 54 mg/dL (0-99); TRIGLYCERIDES 100 mg/dL (30-200)
[2017-11-02 11:48] VITALS: BP 130/44
[2017-11-02] MEDS: ISOSORBIDE MONO 60 MG TAB.SR PO SCH (15:11)
[2017-11-02 15:35] VITALS: BP 130/77
[2017-11-02 19:00] VITALS: BP 126/73
[2017-11-02] MEDS: ATORVASTATIN CALCIUM 20 MG TABLET PO SCH (21:12)
[2017-11-02 23:00] VITALS: BP 142/47
[2017-11-03] MEDS: FUROSEMIDE 10 MG/ML 4ML VIAL IV SCH (00:42)
[2017-11-03] MEDS: CEFTRIAXONE SODIUM 1 GM IVP SCH ×2 (00:42→23:07)
[2017-11-03 03:00] VITALS: BP 159/63
[2017-11-03 05:06] LABS: BASOPHILS % (AUTO) 0.1 % (0.0-5.0); EOSINOPHILS % (AUTO) 0.4 % (0.0-8.0); HEMATOCRIT 24.7 % (42-54); LYMPHOCYTES % (AUTO) 33.6 % (21.0-51.0); MEAN CORPUSCULAR HEMOGLOBIN 32.1 pg (27.0-33.0); MEAN CORPUSCULAR HGB CONC 34.2 g/dL (32.0-36.0); MEAN CORPUSCULAR VOLUME 93.7 fL (79-99); MONOCYTES % (AUTO) 7.9 % (3.0-13.0); PLATELET COUNT (AUTO) 151 K/uL (130-400); RED BLOOD CELL COUNT(AUTO) 2.64 MIL/uL (4.50-6.20); RED CELL DISTRIBUTION WIDTH 13.4 % (11.0-15.5)
[2017-11-03 05:22] LABS: CREATININE 3.1 mg/dL (0.5-1.5); MAGNESIUM 1.7 mg/dL (1.80-2.40); PHOSPHORUS 4.7 mg/dL (2.5-4.9); POTASSIUM 5.2 mmol/L (3.5-5.1)
[2017-11-03] MEDS: INSULIN R PO SS1 SQ SCH ×4 (06:28→21:00)
[2017-11-03] MEDS: IPRATROPIUM/ALBUTEROL SULFATE 3 ML SOLUTION IH SCH ×4 (06:35→23:32)
[2017-11-03 07:44] VITALS: BP 115/84
[2017-11-03] MEDS: FOLIC ACID/VITAMIN B COMP W-C 1 MG CAPSULE PO SCH (09:54)
[2017-11-03] MEDS: AMLODIPINE BESYLATE 5 MG TAB PO SCH (09:55)
[2017-11-03] MEDS: ISOSORBIDE MONO 60 MG TAB.SR PO SCH (09:55)
[2017-11-03] MEDS: FUROSEMIDE 40 MG TABLET PO SCH ×2 (09:56→20:13)
[2017-11-03] MEDS: METOPROLOL TARTRATE 25 MG TAB PO SCH ×2 (09:56→23:07)
[2017-11-03] MEDS: FERROUS SULFATE 325 MG TABLET.DR PO SCH (09:56)
[2017-11-03] MEDS: TERAZOSIN HCL 5 MG CAPSULE PO SCH (09:56)
[2017-11-03] MEDS: GLIPIZIDE 5 MG TABLET PO SCH (09:57)
[2017-11-03] MEDS: ASPIRIN 81MG TAB.CHEW PO SCH (09:57)
[2017-11-03] MEDS ORDERED: MAGNESIUM 2GM PREMIX 50ML 50 ML IV PRN (11:15)
[2017-11-03 11:27] VITALS: BP 109/49
[2017-11-03] MEDS ORDERED: SODIUM POLYSTYRENE SULFONATE 15 GM/60 ML ML PO ONE (11:30)
[2017-11-03 16:00] VITALS: BP 147/77
[2017-11-03] MEDS ORDERED: SODIUM POLYSTYRENE SULFONATE 15 GM/60 ML ML ONE (19:55)
[2017-11-03 20:07] VITALS: BP 153/49
[2017-11-03] MEDS: ATORVASTATIN CALCIUM 20 MG TABLET PO SCH (23:07)
[2017-11-04 00:04] VITALS: BP 156/56
[2017-11-04 03:37] VITALS: BP 145/56
[2017-11-04 06:12] LABS: MAGNESIUM 2.2 mg/dL (1.80-2.40); POTASSIUM 4.8 mmol/L (3.5-5.1)
[2017-11-04] MEDS: IPRATROPIUM/ALBUTEROL SULFATE 3 ML SOLUTION IH SCH ×3 (06:34→18:17)
[2017-11-04] MEDS: INSULIN R PO SS1 SQ SCH ×4 (06:50→21:00)
[2017-11-04 08:00] VITALS: BP 150/55
[2017-11-04] MEDS: FERROUS SULFATE 325 MG TABLET.DR PO SCH (08:28)
[2017-11-04] MEDS: FUROSEMIDE 40 MG TABLET PO SCH ×2 (08:28→17:08)
[2017-11-04] MEDS: AMLODIPINE BESYLATE 5 MG TAB PO SCH (08:28)
[2017-11-04] MEDS: TERAZOSIN HCL 5 MG CAPSULE PO SCH (08:28)
[2017-11-04] MEDS: ASPIRIN 81MG TAB.CHEW PO SCH (08:28)
[2017-11-04] MEDS: ISOSORBIDE MONO 60 MG TAB.SR PO SCH (08:29)
[2017-11-04] MEDS: FOLIC ACID/VITAMIN B COMP W-C 1 MG CAPSULE PO SCH (08:29)
[2017-11-04] MEDS: METOPROLOL TARTRATE 25 MG TAB PO SCH ×2 (08:29→21:16)
[2017-11-04] MEDS: GLIPIZIDE 5 MG TABLET PO SCH (08:29)
[2017-11-04 11:43] VITALS: BP 149/56
[2017-11-04 16:00] VITALS: BP 138/57
[2017-11-04 19:20] VITALS: BP 150/44
[2017-11-04] MEDS: ATORVASTATIN CALCIUM 20 MG TABLET PO SCH (21:16)
[2017-11-04] MEDS: CEFTRIAXONE SODIUM 1 GM IVP SCH (23:27)
[2017-11-05 00:05] VITALS: BP 142/52
[2017-11-05] MEDS: IPRATROPIUM/ALBUTEROL SULFATE 3 ML SOLUTION IH SCH ×3 (00:12→11:32)
[2017-11-05 04:22] VITALS: BP 140/53
[2017-11-05 05:01] LABS: HEMATOCRIT 24.1 % (42-54); MEAN CORPUSCULAR HEMOGLOBIN 31.5 pg (27.0-33.0); MEAN CORPUSCULAR HGB CONC 34.3 g/dL (32.0-36.0); PLATELET COUNT (AUTO) 144 K/uL (130-400); RED BLOOD CELL COUNT(AUTO) 2.62 MIL/uL (4.50-6.20); RED CELL DISTRIBUTION WIDTH 13.2 % (11.0-15.5); WHITE BLOOD COUNT (AUTO) 4.7 K/uL (4.8-10.8)
[2017-11-05 05:09] LABS: CREATININE 3.1 mg/dL (0.5-1.5); POTASSIUM 4.4 mmol/L (3.5-5.1)
[2017-11-05] MEDS: INSULIN R PO SS1 SQ SCH ×2 (07:16→11:29)
[2017-11-05 08:37] VITALS: BP 159/52
[2017-11-05] MEDS: GLIPIZIDE 5 MG TABLET PO SCH (08:43)
[2017-11-05] MEDS: ISOSORBIDE MONO 60 MG TAB.SR PO SCH (08:44)
[2017-11-05] MEDS: FOLIC ACID/VITAMIN B COMP W-C 1 MG CAPSULE PO SCH (08:44)
[2017-11-05] MEDS: FERROUS SULFATE 325 MG TABLET.DR PO SCH (08:44)
[2017-11-05] MEDS: FUROSEMIDE 40 MG TABLET PO SCH (08:44)
[2017-11-05] MEDS: METOPROLOL TARTRATE 25 MG TAB PO SCH (08:44)
[2017-11-05] MEDS: TERAZOSIN HCL 5 MG CAPSULE PO SCH (08:44)
[2017-11-05] MEDS: ASPIRIN 81MG TAB.CHEW PO SCH (08:44)
[2017-11-05] MEDS: AMLODIPINE BESYLATE 5 MG TAB PO SCH (08:45)
[2017-11-05 12:13] VITALS: BP 154/58
[2017-11-05] MEDS ORDERED: IRON SUCROSE COMPLEX 300 MG in SODIUM CHLORIDE 0.9% 50 ML IV SCH (13:00)
[2017-11-05] MEDS ORDERED: EPOETIN ALFA 20,000 UNIT/ML VIAL SQ SCH (13:00)
[2017-11-05] MEDS ORDERED: COMPOUND IV MISC 1 EACH IVSOLN MISC PRN (13:15)
[2017-11-05] MEDS ORDERED: EPOETIN ALFA 10,000 UNIT/ML VIAL SQ SCH (13:30)
== END 2017-11-05 16:31 | disposition home or self-care (01) | DRG 291 ==
LOC: EDH 20:10 → EDHIP 23:50 → UNDOADMIN 11-02 → EDHIP 11-02 → 3CH 11-02 02:39
PROVIDERS: ADMIT Hospitalist; ATTEND Hospitalist
DX: I13.0 Hypertensive heart and chronic kidney disease with heart failure and stage 1 through stage 4 chronic kidney disease, or unspecified chronic kidney disease (principal); I50.43 Acute on chronic combined systolic (congestive) and diastolic (congestive) heart failure; N17.9 Acute kidney failure, unspecified; N39.0 Urinary tract infection, site not specified; N18.4 Chronic kidney disease, stage 4 (severe); I42.9 Cardiomyopathy, unspecified; I16.0 Hypertensive urgency; N28.9 Disorder of kidney and ureter, unspecified; F19.10 Other psychoactive substance abuse, uncomplicated; D63.1 Anemia in chronic kidney disease; B96.20 Unspecified Escherichia coli [E. coli] as the cause of diseases classified elsewhere; E11.21 Type 2 diabetes mellitus with diabetic nephropathy; E11.22 Type 2 diabetes mellitus with diabetic chronic kidney disease; E11.51 Type 2 diabetes mellitus with diabetic peripheral angiopathy without gangrene; E78.5 Hyperlipidemia, unspecified; E83.42 Hypomagnesemia; E87.5 Hyperkalemia; F14.10 Cocaine abuse, uncomplicated; Z60.2 Problems related to living alone; E11.59 Type 2 diabetes mellitus with other circulatory complications; I25.10 Atherosclerotic heart disease of native coronary artery without angina pectoris; I65.23 Occlusion and stenosis of bilateral carotid arteries; Z79.84 Long term (current) use of oral hypoglycemic drugs; Z71.89 Other specified counseling; Z82.49 Family history of ischemic heart disease and other diseases of the circulatory system; Z83.3 Family history of diabetes mellitus; Z91.14 Patient's other noncompliance with medication regimen; Z91.19 Patient's noncompliance with other medical treatment and regimen; Z79.4 Long term (current) use of insulin; Z79.899 Other long term (current) drug therapy; Z79.82 Long term (current) use of aspirin
CPT/HCPCS: 36415; 71045; 80048; 80053; 80061; 80305; 81001; 82550; 82553; 82728; 82948; 83540; 83550; 83605; 83735; 83874; 83880; 84100; 84132; 84484; 85025; 85027; 85610; 85730; 86140; 87040; 87088; 87186; 93005; 93306; 94640; 94664; A4218; J0696; J0885; J1756; J1940; J3475

== ENCOUNTER 2017-11-10 15:28 | Inpatient (IN) | payer MEDICARE ==
[~2017-11-10] VITALS: Ht 170.2 cm; Wt 77.0 kg
[2017-11-10 15:54] LABS: BILIRUBIN,URINE Negative (NEGATIVE); COLOR,URINE Yellow (YELLOW); GLUCOSE, URINE (UA) Negative (NEGATIVE); KETONES,URINE Negative (NEGATIVE); LEUKOCYTE ESTERASE ,URINE Moderate (NEGATIVE); NITRATE,URINE Negative (NEGATIVE); OCCULT BLOOD,URINE Moderate (NEGATIVE); PROTEIN,URINE 300 (NEGATIVE); UROBILINOGEN,URINE 0.2 mg/dL (0.2-1.0)
[2017-11-10] MEDS ORDERED: SODIUM CHLORIDE 0.9% 500ML 500 ML IV ONE (15:54)
[2017-11-10] MEDS ORDERED: ACETAMINOPHEN 325 MG TAB ONE (15:54)
[2017-11-10 15:55] LABS: APPEARANCE,URINE SLIGHTLY CLOUDY (CLEAR)
[2017-11-10] MEDS ORDERED: ALBUTEROL SULFATE 0.083% 2.5 MG/3 ML INH IH ONE (16:07)
[2017-11-10 16:13] LABS: BASOPHILS % (AUTO) 0.8 % (0.0-5.0); EOSINOPHILS % (AUTO) 0.3 % (0.0-8.0); HEMATOCRIT 32.1 % (42-54); LYMPHOCYTES % (AUTO) 18.2 % (21.0-51.0); MEAN CORPUSCULAR HEMOGLOBIN 31.5 pg (27.0-33.0); MEAN CORPUSCULAR HGB CONC 33.7 g/dL (32.0-36.0); MEAN CORPUSCULAR VOLUME 93.4 fL (79-99); MONOCYTES % (AUTO) 5.3 % (3.0-13.0); NEUTROPHILS % (AUTO) 75.4 % (40.0-77.0); NUCLEATED RED BLOOD CELLS 0.1 % (0.0-0.19); PLATELET COUNT (AUTO) 285 K/uL (130-400); RED BLOOD CELL COUNT(AUTO) 3.44 MIL/uL (4.50-6.20); RED CELL DISTRIBUTION WIDTH 13.5 % (11.0-15.5); WHITE BLOOD COUNT (AUTO) 11.9 K/uL (4.8-10.8)
[2017-11-10 16:22] LABS: CARBON DIOXIDE 21 mmol/L (21-32); CHLORIDE 107 mmol/L (101-111); CREATININE 2.5 mg/dL (0.5-1.5); GLOMERULAR FILTR. RATE CALC 28 mL/min (>60); GLUCOSE,RANDOM 135 mg/dL (70-105); POTASSIUM 4.7 mmol/L (3.5-5.1); SODIUM SERUM 138 mmol/L (136-145); UREA NITROGEN, BLOOD 29 mg/dL (7-18)
[2017-11-10 16:26] LABS: INR 1.01 (0.85-1.15); PARTIAL THROMBOPLASTIN TIME 27.1 SEC (26.3-35.5); PROTHROMBIN TIME 10.6 SEC (9.6-11.6)
[2017-11-10 16:29] LABS: WBC,URINE 26-50 /HPF (0-1)
[2017-11-10 16:30] LABS: BACTERIA,URINE Few /HPF (None Seen); SQUAMOUS EPITHELIAL CELL,UR Rare /HPF (0-2); TRANSITIONAL EPI CELLS,URINE Rare /HPF (None Seen)
[2017-11-10 16:40] LABS: ALANINE AMINOTRANSFERASE 26 U/L (12-78); ALBUMIN 3.4 g/dL (3.5-5.0); ASPARTATE AMINOTRANSFERASE 27 U/L (10-37); BILIRUBIN,TOTAL 0.6 mg/dL (0.2-1.0); CREATINE KINASE, TOTAL 71 U/L (21-232); MYOGLOBIN 77 ng/mL (10-92); TOTAL PROTEIN, SERUM 7.4 g/dL (6.0-8.3); TROPONIN I < 0.04 ng/mL (0.00-0.06)
[2017-11-10] MEDS ORDERED: FUROSEMIDE 10 MG/ML 4ML VIAL IV SCH (18:45)
[2017-11-10] MEDS ORDERED: LEVOFLOXACIN 500 MG/D5W 100 ML 100 ML IV SCH (18:45)
[2017-11-10] MEDS ORDERED: HYDROCODONE/ACETAMINOPHEN 5/325 MG TAB PO PRN (18:45)
[2017-11-10] MEDS ORDERED: ONDANSETRON HCL 4 MG/2 ML VIAL IV PRN (18:45)
[2017-11-10] MEDS: ZOSYN 3.375GM+NS 50ML 50 ML IV SCH (18:45)
[2017-11-10] MEDS ORDERED: FUROSEMIDE 10 MG/ML 4ML VIAL ONE (19:32)
[2017-11-10] MEDS ORDERED: LEVOFLOXACIN 500 MG/D5W 100 ML 100 ML ONE (19:33)
[2017-11-10] MEDS ORDERED: ZOSYN 3.375GM+NS 50ML 50 ML IV ONE (19:34)
[2017-11-10] MEDS ORDERED: SODIUM CHLORIDE 0.9% 100 ML IV ONE (19:34)
[2017-11-10] MEDS: INSULIN HUMULIN R 100 UNIT/ML 3ML SQ SCH (21:00)
[2017-11-10] MEDS: FUROSEMIDE 10 MG/ML 4ML VIAL IVP SCH (21:00)
[2017-11-10] MEDS ORDERED: LEVO250T59 PO (22:01)
[2017-11-10] MEDS ORDERED: FOLI0.8T22 PO (22:01)
[2017-11-10] MEDS: IPRATROPIUM/ALBUTEROL SULFATE 3 ML SOLUTION IH SCH (23:25)
[2017-11-11] VITALS (7 sets, daily range): BP systolic 124–182; BP diastolic 53–90
[2017-11-11] MEDS: METOPROLOL TARTRATE 25 MG TAB PO SCH ×3 (00:11→21:54)
[2017-11-11] MEDS: ZOSYN 3.375GM+NS 50ML 50 ML IV SCH ×2 (06:01→21:54)
[2017-11-11] MEDS: INSULIN HUMULIN R 100 UNIT/ML 3ML SQ SCH ×4 (06:16→21:00)
[2017-11-11] MEDS: IPRATROPIUM/ALBUTEROL SULFATE 3 ML SOLUTION IH SCH ×4 (06:32→23:08)
[2017-11-11] MEDS: FERROUS SULFATE 325 MG TABLET.DR PO SCH (08:21)
[2017-11-11] MEDS: ASPIRIN 81MG TAB.CHEW PO SCH (08:21)
[2017-11-11] MEDS: FUROSEMIDE 10 MG/ML 4ML VIAL IVP SCH (08:21)
[2017-11-11] MEDS: TERAZOSIN HCL 5 MG CAPSULE PO SCH (08:21)
[2017-11-11] MEDS: PANTOPRAZOLE SODIUM 40 MG TABLET.DR PO SCH (08:21)
[2017-11-11] MEDS: AMLODIPINE BESYLATE 5 MG TAB PO SCH (08:21)
[2017-11-11] MEDS: GLIPIZIDE XL 5MG TAB PO SCH (08:24)
[2017-11-11] MEDS: ENOXAPARIN SODIUM 40 MG/0.4 ML SYRINGE SQ SCH (08:30)
[2017-11-11 09:09] LABS: BASOPHILS % (AUTO) 0.2 % (0.0-5.0); EOSINOPHILS % (AUTO) 0.5 % (0.0-8.0); HEMATOCRIT 28.7 % (42-54); LYMPHOCYTES % (AUTO) 16.2 % (21.0-51.0); MEAN CORPUSCULAR HEMOGLOBIN 30.6 pg (27.0-33.0); MEAN CORPUSCULAR HGB CONC 32.9 g/dL (32.0-36.0); MONOCYTES % (AUTO) 6.4 % (3.0-13.0); NEUTROPHILS % (AUTO) 76.7 % (40.0-77.0); PLATELET COUNT (AUTO) 238 K/uL (130-400); RED BLOOD CELL COUNT(AUTO) 3.08 MIL/uL (4.50-6.20); RED CELL DISTRIBUTION WIDTH 13.4 % (11.0-15.5); WHITE BLOOD COUNT (AUTO) 11.2 K/uL (4.8-10.8)
[2017-11-11 09:16] LABS: CREATININE 2.9 mg/dL (0.5-1.5); POTASSIUM 4.4 mmol/L (3.5-5.1)
[2017-11-11] MEDS ORDERED: LEVOFLOXACIN 500 MG TABLET PO SCH (14:00)
[2017-11-11] MEDS ORDERED: LEVOFLOXACIN 500 MG/D5W 100 ML 100 ML IV SCH (20:00)
[2017-11-11] MEDS ORDERED: FUROSEMIDE 10 MG/ML 2ML VIAL IVP SCH (21:36)
[2017-11-11] MEDS: LEVOFLOXACIN 500 MG TABLET PO SCH (21:53)
[2017-11-11] MEDS: FUROSEMIDE 10 MG/ML 2ML VIAL IVP SCH (22:04)
[2017-11-12 03:11] VITALS: BP 173/55
[2017-11-12 03:36] LABS: BASOPHILS % (AUTO) 0.2 % (0.0-5.0); EOSINOPHILS % (AUTO) 1.6 % (0.0-8.0); HEMATOCRIT 26.9 % (42-54); LYMPHOCYTES % (AUTO) 21.8 % (21.0-51.0); MEAN CORPUSCULAR HEMOGLOBIN 31.6 pg (27.0-33.0); MEAN CORPUSCULAR HGB CONC 33.8 g/dL (32.0-36.0); MEAN CORPUSCULAR VOLUME 93.4 fL (79-99); NEUTROPHILS % (AUTO) 68.4 % (40.0-77.0); PLATELET COUNT (AUTO) 206 K/uL (130-400); RED BLOOD CELL COUNT(AUTO) 2.88 MIL/uL (4.50-6.20); RED CELL DISTRIBUTION WIDTH 13.4 % (11.0-15.5); WHITE BLOOD COUNT (AUTO) 9.9 K/uL (4.8-10.8)
[2017-11-12 03:53] LABS: CREATININE 3.4 mg/dL (0.5-1.5); POTASSIUM 4.5 mmol/L (3.5-5.1)
[2017-11-12 04:12] LABS: B-TYPE NATRIURETIC PEPTIDE 493 pg/mL (0-100)
[2017-11-12] MEDS: INSULIN HUMULIN R 100 UNIT/ML 3ML SQ SCH ×4 (06:24→21:00)
[2017-11-12] MEDS: IPRATROPIUM/ALBUTEROL SULFATE 3 ML SOLUTION IH SCH ×4 (06:24→23:38)
[2017-11-12 07:00] VITALS: BP 172/63
[2017-11-12] MEDS: TERAZOSIN HCL 5 MG CAPSULE PO SCH (08:53)
[2017-11-12] MEDS: ASPIRIN 81MG TAB.CHEW PO SCH (08:53)
[2017-11-12] MEDS: GLIPIZIDE XL 5MG TAB PO SCH (08:53)
[2017-11-12] MEDS: METOPROLOL TARTRATE 25 MG TAB PO SCH (08:53)
[2017-11-12] MEDS: FERROUS SULFATE 325 MG TABLET.DR PO SCH (08:53)
[2017-11-12] MEDS: PANTOPRAZOLE SODIUM 40 MG TABLET.DR PO SCH (08:53)
[2017-11-12] MEDS: FUROSEMIDE 10 MG/ML 2ML VIAL IVP SCH ×2 (08:54→21:26)
[2017-11-12] MEDS: AMLODIPINE BESYLATE 5 MG TAB PO SCH (08:54)
[2017-11-12] MEDS: ZOSYN 3.375GM+NS 50ML 50 ML IV SCH ×2 (08:56→21:27)
[2017-11-12] MEDS: ENOXAPARIN SODIUM 40 MG/0.4 ML SYRINGE SQ SCH (08:59)
[2017-11-12 11:00] VITALS: BP 145/68
[2017-11-12 16:00] VITALS: BP 154/67
[2017-11-12] MEDS: ACETAMINOPHEN 325 MG TAB PO PRN ×2 (16:18→23:23)
[2017-11-12 19:17] VITALS: BP 131/46
[2017-11-12] MEDS: METOPROLOL TARTRATE 50 MG TAB PO SCH (21:27)
[2017-11-12] MEDS: LEVOFLOXACIN 500 MG TABLET PO SCH (21:27)
[2017-11-12] MEDS: BENZONATATE 100 MG CAPSULE PO SCH (22:31)
[2017-11-12 23:18] VITALS: BP 164/60
[2017-11-13 03:41] LABS: BASOPHILS % (AUTO) 0.1 % (0.0-5.0); EOSINOPHILS % (AUTO) 1.5 % (0.0-8.0); HEMATOCRIT 27.9 % (42-54); LYMPHOCYTES % (AUTO) 16.2 % (21.0-51.0); MEAN CORPUSCULAR HEMOGLOBIN 30.8 pg (27.0-33.0); MEAN CORPUSCULAR HGB CONC 33.1 g/dL (32.0-36.0); MONOCYTES % (AUTO) 7.7 % (3.0-13.0); NEUTROPHILS % (AUTO) 74.5 % (40.0-77.0); PLATELET COUNT (AUTO) 197 K/uL (130-400); RED CELL DISTRIBUTION WIDTH 13.4 % (11.0-15.5); WHITE BLOOD COUNT (AUTO) 11.4 K/uL (4.8-10.8)
[2017-11-13 03:50] LABS: CREATININE 3.7 mg/dL (0.5-1.5); PHOSPHORUS 4.6 mg/dL (2.5-4.9); POTASSIUM 4.6 mmol/L (3.5-5.1); URIC ACID 10.6 mg/dL (2.6-7.2)
[2017-11-13 04:03] VITALS: BP 157/56
[2017-11-13 04:07] LABS: % IRON SATURATION 12.7 % (30-44)
[2017-11-13] MEDS: IPRATROPIUM/ALBUTEROL SULFATE 3 ML SOLUTION IH SCH ×4 (05:57→23:00)
[2017-11-13] MEDS: INSULIN HUMULIN R 100 UNIT/ML 3ML SQ SCH ×4 (06:42→20:33)
[2017-11-13 07:26] VITALS: BP 165/62
[2017-11-13] MEDS ORDERED: FERROUS SULFATE 325 MG TABLET.DR PO SCH (09:00)
[2017-11-13] MEDS: AMLODIPINE BESYLATE 5 MG TAB PO SCH (09:18)
[2017-11-13] MEDS: TERAZOSIN HCL 5 MG CAPSULE PO SCH (09:18)
[2017-11-13] MEDS: GLIPIZIDE XL 5MG TAB PO SCH (09:18)
[2017-11-13] MEDS: BENZONATATE 100 MG CAPSULE PO SCH ×3 (09:18→20:42)
[2017-11-13] MEDS: METOPROLOL TARTRATE 50 MG TAB PO SCH ×2 (09:18→20:43)
[2017-11-13] MEDS: PANTOPRAZOLE SODIUM 40 MG TABLET.DR PO SCH (09:18)
[2017-11-13] MEDS: ASPIRIN 81MG TAB.CHEW PO SCH (09:18)
[2017-11-13] MEDS: FOLIC ACID/VITAMIN B COMP W-C 1 MG CAPSULE PO SCH (09:18)
[2017-11-13] MEDS: FERROUS SULFATE 325 MG TABLET.DR PO SCH (09:19)
[2017-11-13] MEDS: FUROSEMIDE 10 MG/ML 2ML VIAL IVP SCH ×2 (09:20→20:43)
[2017-11-13] MEDS: ZOSYN 3.375GM+NS 50ML 50 ML IV SCH ×2 (09:22→20:42)
[2017-11-13] MEDS: ENOXAPARIN SODIUM 40 MG/0.4 ML SYRINGE SQ SCH (09:24)
[2017-11-13] MEDS ORDERED: COMPOUND IV MISC 1 EACH IVSOLN MISC PRN (11:45)
[2017-11-13 11:51] VITALS: BP 140/56
[2017-11-13 16:03] VITALS: BP 171/59
[2017-11-13 19:38] VITALS: BP 159/74
[2017-11-13] MEDS: LEVOFLOXACIN 500 MG TABLET PO SCH (20:43)
[2017-11-13 23:52] VITALS: BP 162/68
[2017-11-14 03:43] VITALS: BP 171/59
[2017-11-14 04:02] LABS: BASOPHILS % (AUTO) 0.2 % (0.0-5.0); EOSINOPHILS % (AUTO) 0.9 % (0.0-8.0); HEMATOCRIT 26.4 % (42-54); LYMPHOCYTES % (AUTO) 15.2 % (21.0-51.0); MEAN CORPUSCULAR HEMOGLOBIN 31.9 pg (27.0-33.0); MEAN CORPUSCULAR HGB CONC 34.6 g/dL (32.0-36.0); MEAN CORPUSCULAR VOLUME 92.2 fL (79-99); MONOCYTES % (AUTO) 7.4 % (3.0-13.0); NEUTROPHILS % (AUTO) 76.3 % (40.0-77.0); PLATELET COUNT (AUTO) 206 K/uL (130-400); RED BLOOD CELL COUNT(AUTO) 2.86 MIL/uL (4.50-6.20); RED CELL DISTRIBUTION WIDTH 13.5 % (11.0-15.5); WHITE BLOOD COUNT (AUTO) 11.8 K/uL (4.8-10.8)
[2017-11-14 04:18] LABS: CREATININE 3.7 mg/dL (0.5-1.5); POTASSIUM 4.1 mmol/L (3.5-5.1)
[2017-11-14] MEDS: IPRATROPIUM/ALBUTEROL SULFATE 3 ML SOLUTION IH SCH ×4 (06:07→23:13)
[2017-11-14] MEDS: INSULIN HUMULIN R 100 UNIT/ML 3ML SQ SCH ×2 (07:30→20:46)
[2017-11-14 07:57] VITALS: BP 158/68
[2017-11-14] MEDS: ZOSYN 3.375GM+NS 50ML 50 ML IV SCH ×2 (09:31→21:07)
[2017-11-14] MEDS: PANTOPRAZOLE SODIUM 40 MG TABLET.DR PO SCH (09:32)
[2017-11-14] MEDS: ENOXAPARIN SODIUM 40 MG/0.4 ML SYRINGE SQ SCH (09:32)
[2017-11-14] MEDS: TERAZOSIN HCL 5 MG CAPSULE PO SCH (09:32)
[2017-11-14] MEDS: FUROSEMIDE 10 MG/ML 2ML VIAL IVP SCH ×2 (09:32→21:06)
[2017-11-14] MEDS: GLIPIZIDE XL 5MG TAB PO SCH (09:33)
[2017-11-14] MEDS: METOPROLOL TARTRATE 50 MG TAB PO SCH ×2 (09:33→21:05)
[2017-11-14] MEDS: ASPIRIN 81MG TAB.CHEW PO SCH (09:33)
[2017-11-14] MEDS: AMLODIPINE BESYLATE 5 MG TAB PO SCH (09:33)
[2017-11-14] MEDS: FOLIC ACID/VITAMIN B COMP W-C 1 MG CAPSULE PO SCH (09:33)
[2017-11-14] MEDS: BENZONATATE 100 MG CAPSULE PO SCH ×2 (09:33→21:07)
[2017-11-14] MEDS: IRON SUCROSE COMPLEX 100 MG in SODIUM CHLORIDE 0.9% 50 ML IV SCH (09:39)
[2017-11-14 11:03] VITALS: BP 175/51
[2017-11-14] MEDS: OSELTAMIVIR SUSP 15 MG/ML (6 CAPS/29ML) PO SCH ×2 (12:45)
[2017-11-14] MEDS ORDERED: OSELTAMIVIR PHOSPHATE 75 MG CAP PO SCH ×2 (12:45→14:45)
[2017-11-14] MEDS ORDERED: COMPOUND PO MISCELLANEOUS 1 EACH MISC MISC PRN ×2 (13:30→15:15)
[2017-11-14] MEDS ORDERED: OSELTAMIVIR PHOSPHATE 300 MG, COMPOUNDING VEHICLE SF NO.9 50 ML PO SCH ×2 (15:07)
[2017-11-14 15:58] VITALS: BP 147/44
[2017-11-14] MEDS ORDERED: BUDESONIDE 0.5 MG/2 ML INH IH ONE (18:08)
[2017-11-14] MEDS: BUDESONIDE 0.5 MG/2 ML INH IH SCH (18:10)
[2017-11-14 19:55] VITALS: BP 148/50
[2017-11-14] MEDS: LEVOFLOXACIN 500 MG TABLET PO SCH (21:06)
[2017-11-14 23:46] VITALS: BP 167/63
[2017-11-15 03:51] LABS: ABG BASE EXCESS -2.4 mmol/L (-2.0-3.0); ABG HCO3 21.6 mmol/L (21.0-28.0); ABG OXYGEN SATURATION 96.3 % (95.0-99.0); ABG PCO2 35 mmHg (35-48)
[2017-11-15 03:56] VITALS: BP 158/62
[2017-11-15 04:05] LABS: HEMATOCRIT 26.4 % (42-54); MEAN CORPUSCULAR HEMOGLOBIN 31.3 pg (27.0-33.0); MEAN CORPUSCULAR HGB CONC 33.9 g/dL (32.0-36.0); MEAN CORPUSCULAR VOLUME 92.3 fL (79-99); PLATELET COUNT (AUTO) 163 K/uL (130-400); RED BLOOD CELL COUNT(AUTO) 2.86 MIL/uL (4.50-6.20); RED CELL DISTRIBUTION WIDTH 13.8 % (11.0-15.5); WHITE BLOOD COUNT (AUTO) 9.6 K/uL (4.8-10.8)
[2017-11-15 04:20] LABS: ALBUMIN 2.5 g/dL (3.5-5.0); BILIRUBIN,TOTAL 0.6 mg/dL (0.2-1.0); CREATININE 3.4 mg/dL (0.5-1.5); MAGNESIUM 2.1 mg/dL (1.80-2.40); PHOSPHORUS 4.6 mg/dL (2.5-4.9); POTASSIUM 3.8 mmol/L (3.5-5.1); THYROID STIMULATING HORMONE 4.41 uIU/mL (0.36-3.74)
[2017-11-15] MEDS: IPRATROPIUM/ALBUTEROL SULFATE 3 ML SOLUTION IH SCH ×4 (05:54→23:43)
[2017-11-15] MEDS: BUDESONIDE 0.5 MG/2 ML INH IH SCH ×2 (06:09→18:31)
[2017-11-15] MEDS: INSULIN HUMULIN R 100 UNIT/ML 3ML SQ SCH ×4 (06:19→21:00)
[2017-11-15 07:26] VITALS: BP 164/63
[2017-11-15] MEDS: METOPROLOL TARTRATE 50 MG TAB PO SCH (07:45)
[2017-11-15] MEDS: BENZONATATE 100 MG CAPSULE PO SCH ×3 (07:45→20:40)
[2017-11-15] MEDS: ASPIRIN 81MG TAB.CHEW PO SCH (07:45)
[2017-11-15] MEDS: FOLIC ACID/VITAMIN B COMP W-C 1 MG CAPSULE PO SCH (07:45)
[2017-11-15] MEDS: GLIPIZIDE XL 5MG TAB PO SCH (07:45)
[2017-11-15] MEDS: TERAZOSIN HCL 5 MG CAPSULE PO SCH (07:46)
[2017-11-15] MEDS: FUROSEMIDE 10 MG/ML 2ML VIAL IVP SCH (07:46)
[2017-11-15] MEDS: ENOXAPARIN SODIUM 40 MG/0.4 ML SYRINGE SQ SCH (07:46)
[2017-11-15] MEDS: ZOSYN 3.375GM+NS 50ML 50 ML IV SCH (07:46)
[2017-11-15] MEDS: PANTOPRAZOLE SODIUM 40 MG TABLET.DR PO SCH (07:46)
[2017-11-15] MEDS ORDERED: OSELTAMIVIR PHOSPHATE 75 MG CAP PO SCH (09:00)
[2017-11-15] MEDS ORDERED: ALBUMIN (HUMAN) 25% 100 ML IV SCH (10:30)
[2017-11-15 11:27] VITALS: BP 151/59
[2017-11-15] MEDS: IRON SUCROSE COMPLEX 100 MG in SODIUM CHLORIDE 0.9% 50 ML IV SCH (11:43)
[2017-11-15] MEDS: AMLODIPINE BESYLATE 5 MG TAB PO SCH (12:00)
[2017-11-15] MEDS: OSELTAMIVIR SUSP 15 MG/ML (6 CAPS/29ML) PO SCH ×2 (12:01)
[2017-11-15] MEDS ORDERED: FUROSEMIDE 10 MG/ML 4ML VIAL IV SCH (13:00)
[2017-11-15 16:32] VITALS: BP 145/58
[2017-11-15 19:13] VITALS: BP 144/59
[2017-11-15] MEDS: LEVOFLOXACIN 500 MG TABLET PO SCH (20:40)
[2017-11-15] MEDS ORDERED: METOPROLOL TARTRATE 50 MG TAB PO SCH (21:00)
[2017-11-15 23:45] VITALS: BP 163/57
[2017-11-16 04:23] VITALS: BP 160/60
[2017-11-16] MEDS: LEVOTHYROXINE 25 MCG TABLET PO SCH (05:39)
[2017-11-16] MEDS: INSULIN HUMULIN R 100 UNIT/ML 3ML SQ SCH ×4 (05:42→20:53)
[2017-11-16 05:56] LABS: HEMATOCRIT 27.7 % (42-54); MEAN CORPUSCULAR HEMOGLOBIN 31.4 pg (27.0-33.0); MEAN CORPUSCULAR HGB CONC 33.8 g/dL (32.0-36.0); MEAN CORPUSCULAR VOLUME 92.9 fL (79-99); PLATELET COUNT (AUTO) 192 K/uL (130-400); RED BLOOD CELL COUNT(AUTO) 2.99 MIL/uL (4.50-6.20); RED CELL DISTRIBUTION WIDTH 13.4 % (11.0-15.5); WHITE BLOOD COUNT (AUTO) 7.3 K/uL (4.8-10.8)
[2017-11-16 06:07] LABS: CREATININE 3.1 mg/dL (0.5-1.5); POTASSIUM 3.6 mmol/L (3.5-5.1)
[2017-11-16] MEDS: IPRATROPIUM/ALBUTEROL SULFATE 3 ML SOLUTION IH SCH ×4 (06:11→23:34)
[2017-11-16 07:02] LABS: ERYTHROCYTE SEDIMENTATION RATE 45 MM/HR (0-20)
[2017-11-16] MEDS: BUDESONIDE 0.5 MG/2 ML INH IH SCH ×2 (07:11→19:13)
[2017-11-16 08:00] VITALS: BP 168/66
[2017-11-16] MEDS: ASPIRIN 81MG TAB.CHEW PO SCH (10:00)
[2017-11-16] MEDS: LABETALOL HCL 200 MG TABLET PO SCH ×3 (10:00→20:59)
[2017-11-16] MEDS: BENZONATATE 100 MG CAPSULE PO SCH ×3 (10:00→20:54)
[2017-11-16] MEDS: PANTOPRAZOLE SODIUM 40 MG TABLET.DR PO SCH (10:00)
[2017-11-16] MEDS: GLIPIZIDE XL 5MG TAB PO SCH (10:00)
[2017-11-16] MEDS: AMLODIPINE BESYLATE 5 MG TAB PO SCH (10:00)
[2017-11-16] MEDS: TERAZOSIN HCL 5 MG CAPSULE PO SCH (10:01)
[2017-11-16] MEDS: FOLIC ACID/VITAMIN B COMP W-C 1 MG CAPSULE PO SCH (10:01)
[2017-11-16] MEDS: ENOXAPARIN SODIUM 40 MG/0.4 ML SYRINGE SQ SCH (10:04)
[2017-11-16 11:00] VITALS: BP 162/72
[2017-11-16] MEDS: IRON SUCROSE COMPLEX 100 MG in SODIUM CHLORIDE 0.9% 50 ML IV SCH (11:51)
[2017-11-16 12:47] LABS: BASOPHILS % (AUTO) 0.3 % (0.0-5.0); EOSINOPHILS % (AUTO) 1.5 % (0.0-8.0); HEMATOCRIT 27.7 % (42-54); LYMPHOCYTES % (AUTO) 17.4 % (21.0-51.0); MEAN CORPUSCULAR HEMOGLOBIN 31.5 pg (27.0-33.0); MEAN CORPUSCULAR HGB CONC 34.1 g/dL (32.0-36.0); MEAN CORPUSCULAR VOLUME 92.3 fL (79-99); MONOCYTES % (AUTO) 5.6 % (3.0-13.0); NEUTROPHILS % (AUTO) 75.2 % (40.0-77.0); PLATELET COUNT (AUTO) 187 K/uL (130-400); RED BLOOD CELL COUNT(AUTO) 3.01 MIL/uL (4.50-6.20); RED CELL DISTRIBUTION WIDTH 13.6 % (11.0-15.5); WHITE BLOOD COUNT (AUTO) 7.2 K/uL (4.8-10.8)
[2017-11-16 16:00] VITALS: BP 163/40
[2017-11-16] MEDS: LEVOFLOXACIN 500 MG TABLET PO SCH (20:54)
[2017-11-17] VITALS: BP 149/50
[2017-11-17 04:00] VITALS: BP 160/69
[2017-11-17 05:04] LABS: HEMATOCRIT 28.2 % (42-54); MEAN CORPUSCULAR HEMOGLOBIN 31.1 pg (27.0-33.0); MEAN CORPUSCULAR HGB CONC 33.8 g/dL (32.0-36.0); PLATELET COUNT (AUTO) 185 K/uL (130-400); RED BLOOD CELL COUNT(AUTO) 3.07 MIL/uL (4.50-6.20); RED CELL DISTRIBUTION WIDTH 13.7 % (11.0-15.5); WHITE BLOOD COUNT (AUTO) 7.1 K/uL (4.8-10.8)
[2017-11-17 05:31] LABS: ALBUMIN 2.6 g/dL (3.5-5.0); BILIRUBIN,TOTAL 0.3 mg/dL (0.2-1.0); CREATININE 2.8 mg/dL (0.5-1.5); MAGNESIUM 2.2 mg/dL (1.80-2.40); POTASSIUM 3.4 mmol/L (3.5-5.1); TOTAL PROTEIN, SERUM 6.1 g/dL (6.0-8.3)
[2017-11-17] MEDS: LEVOTHYROXINE 25 MCG TABLET PO SCH (06:19)
[2017-11-17] MEDS: INSULIN HUMULIN R 100 UNIT/ML 3ML SQ SCH ×2 (06:19→11:30)
[2017-11-17] MEDS: BUDESONIDE 0.5 MG/2 ML INH IH SCH (06:57)
[2017-11-17] MEDS: IPRATROPIUM/ALBUTEROL SULFATE 3 ML SOLUTION IH SCH ×2 (06:57→11:30)
[2017-11-17 08:00] VITALS: BP 160/57
[2017-11-17] MEDS ORDERED: POTASSIUM CHLORIDE 10% ELIXIR 20 MEQ/15 ML UDCUP PO SCH (08:15)
[2017-11-17] MEDS ORDERED: LEVO25TA9 PO (08:26)
[2017-11-17] MEDS ORDERED: LABE200T5 PO (08:26)
[2017-11-17] MEDS ORDERED: LEVO250T59 PO (08:26)
[2017-11-17] MEDS ORDERED: ENOXAPARIN SODIUM 40 MG/0.4 ML SYRINGE SQ SCH (09:00)
[2017-11-17] MEDS: ASPIRIN 81MG TAB.CHEW PO SCH (09:12)
[2017-11-17] MEDS: FOLIC ACID/VITAMIN B COMP W-C 1 MG CAPSULE PO SCH (09:12)
[2017-11-17] MEDS: LABETALOL HCL 200 MG TABLET PO SCH (09:12)
[2017-11-17] MEDS: TERAZOSIN HCL 5 MG CAPSULE PO SCH (09:12)
[2017-11-17] MEDS: AMLODIPINE BESYLATE 5 MG TAB PO SCH (09:12)
[2017-11-17] MEDS: PANTOPRAZOLE SODIUM 40 MG TABLET.DR PO SCH (09:12)
[2017-11-17] MEDS: GLIPIZIDE XL 5MG TAB PO SCH (09:13)
[2017-11-17] MEDS: BENZONATATE 100 MG CAPSULE PO SCH ×2 (09:16→15:20)
[2017-11-17 11:08] VITALS: BP 162/37
[2017-11-17] MEDS: OSELTAMIVIR SUSP 15 MG/ML (6 CAPS/29ML) PO SCH ×4 (15:25→15:33)
== END 2017-11-17 15:50 | disposition home or self-care (01) | DRG 871 ==
LOC: EDH 15:28 → EDHIP 18:37 → 2AH 21:32 → 3BH 11-15 17:17 → 2AH 11-15 17:51 → 3BH 11-15 17:56 → 2AH 11-15 18:14 → 3BH 11-16 06:37
PROVIDERS: ADMIT Hospitalist; ATTEND Hospitalist
DX: A41.9 Sepsis, unspecified organism (principal); J18.9 Pneumonia, unspecified organism; J96.91 Respiratory failure, unspecified with hypoxia; E43 Unspecified severe protein-calorie malnutrition; I50.33 Acute on chronic diastolic (congestive) heart failure; N12 Tubulo-interstitial nephritis, not specified as acute or chronic; I13.0 Hypertensive heart and chronic kidney disease with heart failure and stage 1 through stage 4 chronic kidney disease, or unspecified chronic kidney disease; F14.20 Cocaine dependence, uncomplicated; I42.9 Cardiomyopathy, unspecified; J98.11 Atelectasis; N17.9 Acute kidney failure, unspecified; E11.65 Type 2 diabetes mellitus with hyperglycemia; Z68.26 Body mass index [BMI] 26.0-26.9, adult; D63.8 Anemia in other chronic diseases classified elsewhere; E03.9 Hypothyroidism, unspecified; E11.21 Type 2 diabetes mellitus with diabetic nephropathy; E11.22 Type 2 diabetes mellitus with diabetic chronic kidney disease; E11.51 Type 2 diabetes mellitus with diabetic peripheral angiopathy without gangrene; N18.3 Chronic kidney disease, stage 3 (moderate); N30.90 Cystitis, unspecified without hematuria; Z87.440 Personal history of urinary (tract) infections; Z83.3 Family history of diabetes mellitus
CPT/HCPCS: 36415; 36600; 71045; 71250; 80048; 80053; 81001; 82550; 82728; 82803; 82948; 83540; 83550; 83605; 83735; 83874; 83880; 84100; 84443; 84484; 84550; 85025; 85027; 85610; 85651; 85730; 87040; 87088; 87804; 93005; 94640; 94664; J1650; J1756; J1940; J1956; J2543; J7040; P9046

== ENCOUNTER 2020-10-30 11:17 | Inpatient (IN) | payer OTHER, MEDICARE ==
[~2020-10-30] VITALS: Ht 170.2 cm; Wt 65.6 kg
[~2020-10-30 11:17] MED LIST changes: +AMLO-257 PO; -AMLO5TAB7 PO; +FOLI0.8T22 PO; +LABE200T5 PO; +LEVO250T59 PO; -METO25 PO
[2020-10-30] MEDS ORDERED: FUROSEMIDE 40MG VIAL ONE (11:42)
[2020-10-30 12:00] LABS: BASOPHILS % (AUTO) 0.2 % (0.0-5.0); EOSINOPHILS % (AUTO) 2.1 % (0.0-8.0); HEMATOCRIT 28.7 % (42-54); LYMPHOCYTES % (AUTO) 10.3 % (21.0-51.0); MEAN CORPUSCULAR HEMOGLOBIN 30.1 pg (27.0-33.0); MEAN CORPUSCULAR HGB CONC 32.8 g/dL (32.0-36.0); MONOCYTES % (AUTO) 5.9 % (3.0-13.0); NEUTROPHILS % (AUTO) 81.1 % (40.0-77.0); PLATELET COUNT (AUTO) 200 K/uL (130-400); RED BLOOD CELL COUNT(AUTO) 3.12 MIL/uL (4.50-6.20); RED CELL DISTRIBUTION WIDTH 14.6 % (11.0-15.5); WHITE BLOOD COUNT (AUTO) 8.2 K/uL (4.8-10.8)
[2020-10-30] MEDS ORDERED: FUROSEMIDE 40MG VIAL IV SCH (12:00)
[2020-10-30] MEDS ORDERED: FUROSEMIDE 20MG VIAL ONE (12:08)
[2020-10-30 12:15] LABS: ALBUMIN 3.3 g/dL (3.5-5.0); CREATININE 4.9 mg/dL (0.5-1.5); POTASSIUM 4.4 mmol/L (3.5-5.1)
[2020-10-30 12:23] LABS: BILIRUBIN,TOTAL 0.6 mg/dL (0.2-1.0)
[2020-10-30 12:31] LABS: B-TYPE NATRIURETIC PEPTIDE 1520 pg/mL (0-100)
[2020-10-30 13:29] VITALS: BP 184/48
[2020-10-30 13:50] LABS: AMPHET/METH SCREEN,URINE NEGATIVE (NEGATIVE); BARBITURATE SCREEN, URINE NEGATIVE (NEGATIVE); BENZODIAZEPINES SCREEN,URINE NEGATIVE (NEGATIVE); CANNABINOID SCREEN,URINE NEGATIVE (NEGATIVE); COCAINE SCREEN,URINE POSITIVE (NEGATIVE); OPIATE SCREEN,URINE NEGATIVE (NEGATIVE); PHENCYCLIDINE SCREEN,URINE NEGATIVE (NEGATIVE)
[2020-10-30] MEDS ORDERED: ACETAMINOPHEN 325 MG TAB PO PRN (15:30)
[2020-10-30] MEDS ORDERED: ONDANSETRON 4MG INJ IV PRN (15:30)
[2020-10-30] MEDS ORDERED: LACTULOSE 20 GM/30 ML UDCUP PO PRN (15:30)
[2020-10-30] MEDS ORDERED: TORS20TA4 PO (15:40)
[2020-10-30] MEDS ORDERED: NITR0.4T50 SL (15:40)
[2020-10-30] MEDS ORDERED: AMLO-258 PO (15:40)
[2020-10-30] MEDS ORDERED: CARV6.25 PO (15:40)
[2020-10-30] MEDS ORDERED: FOLI1TAB85 PO (15:40)
[2020-10-30] MEDS ORDERED: CALC-866 PO (15:40)
[2020-10-30] MEDS ORDERED: ASPI-1197 PO (15:40)
[2020-10-30] MEDS ORDERED: LEVO50CA4 PO (15:40)
[2020-10-30 16:59] VITALS: BP 176/58
[2020-10-30] MEDS ORDERED: NITROGLYCERIN 0.4 MG SL TAB SL PRN (17:30)
[2020-10-30] MEDS: HYDRALAZINE 20MG/ML VIAL IV PRN (17:52)
[2020-10-30 20:01] VITALS: BP 150/69
[2020-10-30] MEDS: BUMETANIDE 1MG/4ML VIAL IVP SCH (20:09)
[2020-10-30 20:20] VITALS: BP 178/85
[2020-10-30] MEDS: CARVEDILOL 6.25 MG TABLET PO SCH (20:32)
[2020-10-30] MEDS: FAMOTIDINE 20MG TAB PO SCH (20:32)
[2020-10-30] MEDS ORDERED: FUROSEMIDE 40MG VIAL IVP SCH (21:00)
[2020-10-30 21:32] LABS: HEMOGLOBIN A1C 5.4 % (4.0-6.0)
[2020-10-30 22:04] LABS: CREATININE 5.1 mg/dL (0.5-1.5); MAGNESIUM 2.2 mg/dL (1.80-2.40); POTASSIUM 4.1 mmol/L (3.5-5.1)
[2020-10-30 23:38] VITALS: BP 178/73
[2020-10-31] MEDS: BUMETANIDE 1MG/4ML VIAL IVP SCH ×3 (02:41→20:10)
[2020-10-31 03:00] LABS: APPEARANCE,URINE Clear (CLEAR); BILIRUBIN,URINE Negative (NEGATIVE); COLOR,URINE Yellow (YELLOW); GLUCOSE, URINE (UA) Negative (NEGATIVE); KETONES,URINE Negative (NEGATIVE); LEUKOCYTE ESTERASE ,URINE Negative (NEGATIVE); NITRATE,URINE Negative (NEGATIVE); OCCULT BLOOD,URINE Negative (NEGATIVE); PROTEIN,URINE POS 2+ mg/dL (NEGATIVE); UROBILINOGEN,URINE 0.2 mg/dL (0.2-1.0)
[2020-10-31 03:11] LABS: BACTERIA,URINE Rare /HPF (None Seen); MUCUS,URINE Rare LPF (None Seen); RBC,URINE None Seen /HPF (0-1); SQUAMOUS EPITHELIAL CELL,UR 0-2 /HPF (0-2); WBC,URINE None Seen /HPF (0-1)
[2020-10-31 03:41] VITALS: BP 174/77
[2020-10-31 05:34] VITALS: BP 169/71
[2020-10-31] MEDS: LEVOTHYROXINE 50 MCG TABLET PO SCH (05:43)
[2020-10-31 06:35] LABS: HEMATOCRIT 28.9 % (42-54); MEAN CORPUSCULAR HEMOGLOBIN 29.9 pg (27.0-33.0); MEAN CORPUSCULAR HGB CONC 32.2 g/dL (32.0-36.0); MEAN CORPUSCULAR VOLUME 92.9 fL (79-99); RED BLOOD CELL COUNT(AUTO) 3.11 MIL/uL (4.50-6.20); RED CELL DISTRIBUTION WIDTH 14.6 % (11.0-15.5); WHITE BLOOD COUNT (AUTO) 6.1 K/uL (4.8-10.8)
[2020-10-31 07:29] LABS: CREATININE 4.9 mg/dL (0.5-1.5); MAGNESIUM 2.4 mg/dL (1.80-2.40); PHOSPHORUS 4.8 mg/dL (2.5-4.9); POTASSIUM 4.2 mmol/L (3.5-5.1); URIC ACID 9.2 mg/dL (2.6-7.2)
[2020-10-31 07:31] LABS: % IRON SATURATION 9.9 % (30-44)
[2020-10-31 07:52] VITALS: BP 152/82
[2020-10-31] MEDS ORDERED: NON-FORMULARY MEDICATION 1 EACH (Amlodipine Besylate 10 MG) PO SCH (09:00)
[2020-10-31] MEDS ORDERED: ASPIRIN 81MG CHEW TAB PO SCH (09:00)
[2020-10-31] MEDS ORDERED: NON-FORMULARY MEDICATION 1 EACH (Vit B Cmplx 3/FA/Vit C/Biotin (Rena-Vite Rx Tablet) 1 EAC PO SCH (09:00)
[2020-10-31] MEDS ORDERED: NON-FORMULARY MEDICATION 1 EACH (Cholecalciferol (Vitamin D3) (Vitamin D3) 125 MCG) PO SCH (09:00)
[2020-10-31] MEDS: CHOLECALCIFEROL 125 MCG PO SCH (09:00)
[2020-10-31] MEDS ORDERED: TORSEMIDE 20 MG TAB PO SCH (09:00)
[2020-10-31] MEDS ORDERED: ENOXAPARIN SODIUM 40 MG/0.4 ML SYRINGE SQ SCH (09:00)
[2020-10-31] MEDS ORDERED: NON-FORMULARY MEDICATION 1 EACH (Levothyroxine Sodium (Levothyroxine) 50 MCG) PO SCH (09:00)
[2020-10-31] MEDS ORDERED: HEPARIN 5,000 UNIT VIAL SQ SCH (09:00)
[2020-10-31] MEDS: CARVEDILOL 6.25 MG TABLET PO SCH ×2 (09:51→20:10)
[2020-10-31] MEDS: Vitamin B Complex/Vit C/Folic Acid PO SCH (09:51)
[2020-10-31] MEDS: AMLODIPINE 5 MG TAB PO SCH (09:51)
[2020-10-31 11:52] VITALS: BP 179/75
[2020-10-31] MEDS: HYDRALAZINE 25MG TABLET PO SCH ×2 (13:35→20:08)
[2020-10-31] MEDS ORDERED: COMPOUND IV MISC 1 EACH IVSOLN MISC PRN (15:30)
[2020-10-31 16:00] VITALS: BP 166/37
[2020-10-31 20:04] VITALS: BP 164/76
[2020-10-31] MEDS: FAMOTIDINE 20MG TAB PO SCH (20:08)
[2020-11-01 00:04] VITALS: BP 160/72
[2020-11-01] MEDS: BUMETANIDE 1MG/4ML VIAL IVP SCH ×3 (03:28→20:01)
[2020-11-01 04:00] VITALS: BP 165/79
[2020-11-01 04:04] LABS: HEMATOCRIT 27.1 % (42-54); MEAN CORPUSCULAR HEMOGLOBIN 29.6 pg (27.0-33.0); MEAN CORPUSCULAR HGB CONC 32.1 g/dL (32.0-36.0); MEAN CORPUSCULAR VOLUME 92.2 fL (79-99); PLATELET COUNT (AUTO) 197 K/uL (130-400); RED BLOOD CELL COUNT(AUTO) 2.94 MIL/uL (4.50-6.20); RED CELL DISTRIBUTION WIDTH 14.4 % (11.0-15.5); WHITE BLOOD COUNT (AUTO) 7.1 K/uL (4.8-10.8)
[2020-11-01 04:09] LABS: CREATININE 4.9 mg/dL (0.5-1.5); MAGNESIUM 2.2 mg/dL (1.80-2.40); PHOSPHORUS 5.1 mg/dL (2.5-4.9); POTASSIUM 4.2 mmol/L (3.5-5.1)
[2020-11-01 04:48] LABS: EOSINOPHILS % (MANUAL) 6 % (1-6); LYMPHOCYTES % (MANUAL) 12 % (22-44); MAN.DIFF COMMENT-IMPRESSION MANUAL DIFFERENTIAL; MONOCYTES % (MANUAL) 3 % (2-9); SEGMENTED NEUTROPHILS % 79 % (40-70)
[2020-11-01 04:49] LABS: PLATELET MORPHOLOGY COMMENT ADEQUATE
[2020-11-01] MEDS: LEVOTHYROXINE 50 MCG TABLET PO SCH (05:17)
[2020-11-01] MEDS: HYDRALAZINE 20MG/ML VIAL IV PRN (05:17)
[2020-11-01 07:20] VITALS: BP 172/83
[2020-11-01] MEDS: CHOLECALCIFEROL 125 MCG PO SCH (09:00)
[2020-11-01] MEDS: IRON SUCROSE COMPLEX 300 MG in 0.9%NACL 50ML 50 ML IV SCH (10:05)
[2020-11-01] MEDS: CARVEDILOL 6.25 MG TABLET PO SCH ×2 (10:06→20:01)
[2020-11-01] MEDS: ALLOPURINOL 100 MG TABLET PO SCH (10:06)
[2020-11-01] MEDS: Vitamin B Complex/Vit C/Folic Acid PO SCH (10:06)
[2020-11-01] MEDS: AMLODIPINE 5 MG TAB PO SCH (10:06)
[2020-11-01] MEDS: HYDRALAZINE 25MG TABLET PO SCH ×3 (10:07→20:02)
[2020-11-01] MEDS ORDERED: HONEY 1 APPL/ML TUBE TP SCH (11:30)
[2020-11-01 12:02] VITALS: BP 174/73
[2020-11-01 16:00] VITALS: BP 149/76
[2020-11-01] MEDS: FAMOTIDINE 20MG TAB PO SCH (20:02)
[2020-11-01] MEDS: HONEY 1 APPL/ML TUBE TP SCH (20:02)
[2020-11-01 20:04] VITALS: BP 157/66
[2020-11-02] VITALS (7 sets, daily range): BP systolic 146–184; BP diastolic 63–100
[2020-11-02] MEDS: BUMETANIDE 1MG/4ML VIAL IVP SCH ×3 (03:18→22:18)
[2020-11-02 04:50] LABS: HEMATOCRIT 27.9 % (42-54); MEAN CORPUSCULAR HEMOGLOBIN 29.6 pg (27.0-33.0); MEAN CORPUSCULAR HGB CONC 31.9 g/dL (32.0-36.0); MEAN CORPUSCULAR VOLUME 92.7 fL (79-99); RED BLOOD CELL COUNT(AUTO) 3.01 MIL/uL (4.50-6.20); RED CELL DISTRIBUTION WIDTH 14.6 % (11.0-15.5); WHITE BLOOD COUNT (AUTO) 7.1 K/uL (4.8-10.8)
[2020-11-02 05:08] LABS: PHOSPHORUS 4.8 mg/dL (2.5-4.9)
[2020-11-02] MEDS: LEVOTHYROXINE 50 MCG TABLET PO SCH (05:43)
[2020-11-02] MEDS: CHOLECALCIFEROL 125 MCG PO SCH (09:00)
[2020-11-02] MEDS: HONEY 1 APPL/ML TUBE TP SCH ×2 (09:00→22:19)
[2020-11-02] MEDS: CARVEDILOL 6.25 MG TABLET PO SCH ×2 (09:59→22:18)
[2020-11-02] MEDS: ALLOPURINOL 100 MG TABLET PO SCH (09:59)
[2020-11-02] MEDS: Vitamin B Complex/Vit C/Folic Acid PO SCH (09:59)
[2020-11-02] MEDS: AMLODIPINE 5 MG TAB PO SCH (10:00)
[2020-11-02] MEDS: HYDRALAZINE 25MG TABLET PO SCH ×3 (10:00→22:18)
[2020-11-02] MEDS: IRON SUCROSE COMPLEX 300 MG in 0.9%NACL 50ML 50 ML IV SCH (10:03)
[2020-11-02 14:35] LABS: PROTEIN,URINE RANDOM 87.3 mg/dL (0-11.9)
[2020-11-02] MEDS: FAMOTIDINE 20MG TAB PO SCH (22:17)
[2020-11-03] MEDS: HYDRALAZINE 20MG/ML VIAL IV PRN (03:35)
[2020-11-03 03:47] VITALS: BP 171/76
[2020-11-03 04:10] LABS: HEMATOCRIT 27.1 % (42-54); MEAN CORPUSCULAR HEMOGLOBIN 29.6 pg (27.0-33.0); MEAN CORPUSCULAR HGB CONC 32.5 g/dL (32.0-36.0); MEAN CORPUSCULAR VOLUME 91.2 fL (79-99); RED BLOOD CELL COUNT(AUTO) 2.97 MIL/uL (4.50-6.20); RED CELL DISTRIBUTION WIDTH 14.7 % (11.0-15.5); WHITE BLOOD COUNT (AUTO) 6.3 K/uL (4.8-10.8)
[2020-11-03 04:26] LABS: CREATININE 5.1 mg/dL (0.5-1.5); POTASSIUM 3.8 mmol/L (3.5-5.1)
[2020-11-03] MEDS: LEVOTHYROXINE 50 MCG TABLET PO SCH (06:24)
[2020-11-03] MEDS: HYDRALAZINE 25MG TABLET PO SCH ×3 (06:24→22:05)
[2020-11-03] MEDS: BUMETANIDE 1MG/4ML VIAL IVP SCH ×3 (06:24→22:05)
[2020-11-03 07:20] VITALS: BP 157/52
[2020-11-03] MEDS: CHOLECALCIFEROL 125 MCG PO SCH (07:39)
[2020-11-03] MEDS: HONEY 1 APPL/ML TUBE TP SCH ×2 (09:00→22:10)
[2020-11-03] MEDS: IRON SUCROSE COMPLEX 300 MG in 0.9%NACL 50ML 50 ML IV SCH (09:54)
[2020-11-03] MEDS: ALLOPURINOL 100 MG TABLET PO SCH (09:55)
[2020-11-03] MEDS: Vitamin B Complex/Vit C/Folic Acid PO SCH (09:55)
[2020-11-03] MEDS: CARVEDILOL 6.25 MG TABLET PO SCH ×2 (09:55→22:05)
[2020-11-03] MEDS: AMLODIPINE 5 MG TAB PO SCH (09:56)
[2020-11-03 10:55] VITALS: BP 166/56
[2020-11-03 15:05] VITALS: BP 149/72
[2020-11-03 20:02] VITALS: BP 160/77
[2020-11-03] MEDS: FAMOTIDINE 20MG TAB PO SCH (22:05)
[2020-11-04] VITALS (7 sets, daily range): BP systolic 142–164; BP diastolic 30–73
[2020-11-04] MEDS: HYDRALAZINE 25MG TABLET PO SCH ×3 (05:39→21:48)
[2020-11-04] MEDS: BUMETANIDE 1MG/4ML VIAL IVP SCH ×3 (05:39→21:48)
[2020-11-04] MEDS: LEVOTHYROXINE 50 MCG TABLET PO SCH (05:39)
[2020-11-04 08:37] LABS: CREATININE 5.6 mg/dL (0.5-1.5); MAGNESIUM 2.1 mg/dL (1.80-2.40); POTASSIUM 4.1 mmol/L (3.5-5.1)
[2020-11-04] MEDS: CHOLECALCIFEROL 125 MCG PO SCH (09:00)
[2020-11-04] MEDS ORDERED: ASPIRIN 81MG CHEW TAB PO ONE (09:30)
[2020-11-04] MEDS: ALLOPURINOL 100 MG TABLET PO SCH (09:33)
[2020-11-04] MEDS: AMLODIPINE 5 MG TAB PO SCH (09:33)
[2020-11-04] MEDS: Vitamin B Complex/Vit C/Folic Acid PO SCH (09:33)
[2020-11-04] MEDS: CARVEDILOL 6.25 MG TABLET PO SCH ×2 (09:33→21:24)
[2020-11-04] MEDS: HONEY 1 APPL/ML TUBE TP SCH ×2 (09:34→21:00)
[2020-11-04] MEDS: ASPIRIN 81MG CHEW TAB PO SCH (09:34)
[2020-11-04] MEDS ORDERED: METOLAZONE 2.5 MG TABLET PO SCH (14:30)
[2020-11-04] MEDS: HEPARIN 5,000 UNIT VIAL SQ SCH ×2 (15:20→21:34)
[2020-11-04] MEDS: FAMOTIDINE 20MG TAB PO SCH (21:24)
[2020-11-05 03:54] LABS: BASOPHILS % (AUTO) 0.3 % (0.0-5.0); EOSINOPHILS % (AUTO) 3.5 % (0.0-8.0); HEMATOCRIT 27.2 % (42-54); LYMPHOCYTES % (AUTO) 14.7 % (21.0-51.0); MEAN CORPUSCULAR HEMOGLOBIN 29.8 pg (27.0-33.0); MEAN CORPUSCULAR HGB CONC 31.6 g/dL (32.0-36.0); MEAN CORPUSCULAR VOLUME 94.1 fL (79-99); PLATELET COUNT (AUTO) 189 K/uL (130-400); RED BLOOD CELL COUNT(AUTO) 2.89 MIL/uL (4.50-6.20); RED CELL DISTRIBUTION WIDTH 14.6 % (11.0-15.5); WHITE BLOOD COUNT (AUTO) 6.6 K/uL (4.8-10.8)
[2020-11-05 03:59] VITALS: BP 158/42
[2020-11-05 04:17] LABS: CREATININE 6.3 mg/dL (0.5-1.5)
[2020-11-05] MEDS: BUMETANIDE 1MG/4ML VIAL IVP SCH ×3 (05:20→21:01)
[2020-11-05] MEDS: HEPARIN 5,000 UNIT VIAL SQ SCH ×3 (05:20→21:06)
[2020-11-05] MEDS: HYDRALAZINE 25MG TABLET PO SCH ×3 (05:21→21:01)
[2020-11-05] MEDS: LEVOTHYROXINE 50 MCG TABLET PO SCH (05:26)
[2020-11-05 08:00] VITALS: BP 162/38
[2020-11-05] MEDS: CHOLECALCIFEROL 125 MCG PO SCH (09:00)
[2020-11-05] MEDS: Vitamin B Complex/Vit C/Folic Acid PO SCH (10:54)
[2020-11-05] MEDS: ASPIRIN 81MG CHEW TAB PO SCH (10:54)
[2020-11-05] MEDS: AMLODIPINE 5 MG TAB PO SCH (10:55)
[2020-11-05] MEDS: ALLOPURINOL 100 MG TABLET PO SCH (10:55)
[2020-11-05] MEDS: CARVEDILOL 6.25 MG TABLET PO SCH ×2 (10:55→21:00)
[2020-11-05 12:00] VITALS: BP 163/65
[2020-11-05] MEDS ORDERED: METOLAZONE 2.5 MG TABLET PO SCH (14:00)
[2020-11-05 16:00] VITALS: BP 156/49
[2020-11-05 20:00] VITALS: BP 161/71
[2020-11-05] MEDS ORDERED: TRAMADOL HCL 50 MG TABLET PO PRN (20:00)
[2020-11-05] MEDS: FAMOTIDINE 20MG TAB PO SCH (21:00)
[2020-11-05] MEDS: HONEY 1 APPL/ML TUBE TP SCH (21:14)
[2020-11-05 23:35] VITALS: BP 148/57
[2020-11-06 03:38] VITALS: BP 150/48
[2020-11-06 04:09] LABS: HEMATOCRIT 27.2 % (42-54); MEAN CORPUSCULAR HEMOGLOBIN 29.9 pg (27.0-33.0); MEAN CORPUSCULAR HGB CONC 31.6 g/dL (32.0-36.0); MEAN CORPUSCULAR VOLUME 94.4 fL (79-99); PLATELET COUNT (AUTO) 176 K/uL (130-400); RED BLOOD CELL COUNT(AUTO) 2.88 MIL/uL (4.50-6.20); RED CELL DISTRIBUTION WIDTH 14.5 % (11.0-15.5); WHITE BLOOD COUNT (AUTO) 7.3 K/uL (4.8-10.8)
[2020-11-06 04:41] LABS: CREATININE 6.6 mg/dL (0.5-1.5); PHOSPHORUS 5.9 mg/dL (2.5-4.9); POTASSIUM 4.3 mmol/L (3.5-5.1)
[2020-11-06 04:49] LABS: EOSINOPHILS % (MANUAL) 7 % (1-6); LYMPHOCYTES % (MANUAL) 13 % (22-44); MAN.DIFF COMMENT-IMPRESSION MANUAL DIFFERENTIAL; MONOCYTES % (MANUAL) 6 % (2-9); PLATELET MORPHOLOGY COMMENT ADEQUATE; REACTIVE LYMPHOCYTES 1 % (0-0); SEGMENTED NEUTROPHILS % 73 % (40-70)
[2020-11-06 04:51] LABS: B-TYPE NATRIURETIC PEPTIDE 1450 pg/mL (0-100)
[2020-11-06] MEDS: HEPARIN 5,000 UNIT VIAL SQ SCH ×3 (05:50→19:39)
[2020-11-06] MEDS: HYDRALAZINE 25MG TABLET PO SCH ×3 (05:56→19:27)
[2020-11-06] MEDS: LEVOTHYROXINE 50 MCG TABLET PO SCH (05:57)
[2020-11-06] MEDS: BUMETANIDE 1MG/4ML VIAL IVP SCH ×3 (05:57→19:26)
[2020-11-06 06:02] VITALS: BP 140/55
[2020-11-06] MEDS: CHOLECALCIFEROL 125 MCG PO SCH (07:34)
[2020-11-06 08:00] VITALS: BP 140/39
[2020-11-06] MEDS: ALLOPURINOL 100 MG TABLET PO SCH (08:28)
[2020-11-06] MEDS: Vitamin B Complex/Vit C/Folic Acid PO SCH (08:28)
[2020-11-06] MEDS: AMLODIPINE 5 MG TAB PO SCH (08:35)
[2020-11-06] MEDS: CARVEDILOL 6.25 MG TABLET PO SCH ×2 (08:35→19:31)
[2020-11-06] MEDS: ASPIRIN 81MG CHEW TAB PO SCH (08:36)
[2020-11-06] MEDS: HONEY 1 APPL/ML TUBE TP SCH ×2 (09:00→19:39)
[2020-11-06 12:00] VITALS: BP 156/39
[2020-11-06 16:00] VITALS: BP 159/33
[2020-11-06] MEDS: METOLAZONE 2.5 MG TABLET PO SCH (16:34)
[2020-11-06] MEDS: FAMOTIDINE 20MG TAB PO SCH (19:27)
[2020-11-06 20:00] VITALS: BP 161/46
[2020-11-07] VITALS (7 sets, daily range): BP systolic 138–162; BP diastolic 34–69
[2020-11-07 03:58] LABS: BASOPHILS % (AUTO) 0.1 % (0.0-5.0); EOSINOPHILS % (AUTO) 2.1 % (0.0-8.0); HEMATOCRIT 27.3 % (42-54); LYMPHOCYTES % (AUTO) 11.2 % (21.0-51.0); MEAN CORPUSCULAR HEMOGLOBIN 29.6 pg (27.0-33.0); MEAN CORPUSCULAR HGB CONC 32.2 g/dL (32.0-36.0); MEAN CORPUSCULAR VOLUME 91.9 fL (79-99); MONOCYTES % (AUTO) 8.2 % (3.0-13.0); PLATELET COUNT (AUTO) 185 K/uL (130-400); RED BLOOD CELL COUNT(AUTO) 2.97 MIL/uL (4.50-6.20); RED CELL DISTRIBUTION WIDTH 14.4 % (11.0-15.5); WHITE BLOOD COUNT (AUTO) 7.2 K/uL (4.8-10.8)
[2020-11-07 04:11] LABS: CREATININE 6.8 mg/dL (0.5-1.5); POTASSIUM 3.9 mmol/L (3.5-5.1)
[2020-11-07 04:13] LABS: INR 1.02 (0.85-1.15); PROTHROMBIN TIME 11.1 SEC (9.6-11.6)
[2020-11-07 04:15] LABS: PARTIAL THROMBOPLASTIN TIME 31.7 SEC (26.3-35.5)
[2020-11-07] MEDS: HYDRALAZINE 25MG TABLET PO SCH ×3 (05:13→21:00)
[2020-11-07] MEDS: LEVOTHYROXINE 50 MCG TABLET PO SCH (05:13)
[2020-11-07] MEDS: HEPARIN 5,000 UNIT VIAL SQ SCH (05:14)
[2020-11-07] MEDS: CHOLECALCIFEROL 125 MCG PO SCH (09:00)
[2020-11-07] MEDS: HONEY 1 APPL/ML TUBE TP SCH ×2 (12:04→20:04)
[2020-11-07] MEDS: CARVEDILOL 6.25 MG TABLET PO SCH ×2 (12:05→20:04)
[2020-11-07] MEDS: AMLODIPINE 5 MG TAB PO SCH (12:05)
[2020-11-07] MEDS: Vitamin B Complex/Vit C/Folic Acid PO SCH (12:05)
[2020-11-07] MEDS: ALLOPURINOL 100 MG TABLET PO SCH (12:06)
[2020-11-07] MEDS: ASPIRIN 81MG CHEW TAB PO SCH (12:06)
[2020-11-07] MEDS: BUMETANIDE 1MG/4ML VIAL IVP SCH ×2 (12:06→20:04)
[2020-11-07] MEDS: METOLAZONE 2.5 MG TABLET PO SCH (12:09)
[2020-11-07] MEDS ORDERED: METOLAZONE 2.5 MG TABLET PO SCH (12:45)
[2020-11-07] MEDS: CALCIUM AC 667MG CAP PO SCH (17:05)
[2020-11-07] MEDS: FAMOTIDINE 20MG TAB PO SCH (20:03)
[2020-11-08] VITALS (7 sets, daily range): BP systolic 138–154; BP diastolic 47–73
[2020-11-08] MEDS ORDERED: ALPRAZOLAM 0.5 MG TABLET PO PRN (02:00)
[2020-11-08 04:01] LABS: HEMATOCRIT 25.2 % (42-54); MEAN CORPUSCULAR HEMOGLOBIN 29.8 pg (27.0-33.0); MEAN CORPUSCULAR HGB CONC 32.1 g/dL (32.0-36.0); MEAN CORPUSCULAR VOLUME 92.6 fL (79-99); PLATELET COUNT (AUTO) 170 K/uL (130-400); RED BLOOD CELL COUNT(AUTO) 2.72 MIL/uL (4.50-6.20); RED CELL DISTRIBUTION WIDTH 14.2 % (11.0-15.5); WHITE BLOOD COUNT (AUTO) 6.3 K/uL (4.8-10.8)
[2020-11-08 04:13] LABS: INR 1.04 (0.85-1.15); PROTHROMBIN TIME 11.3 SEC (9.6-11.6)
[2020-11-08 04:15] LABS: PARTIAL THROMBOPLASTIN TIME 33.4 SEC (26.3-35.5)
[2020-11-08 04:17] LABS: BILIRUBIN,TOTAL 0.5 mg/dL (0.2-1.0); PHOSPHORUS 5.8 mg/dL (2.5-4.9); POTASSIUM 3.7 mmol/L (3.5-5.1); TOTAL PROTEIN, SERUM 6.4 g/dL (6.0-8.3)
[2020-11-08 05:06] LABS: EOSINOPHILS % (MANUAL) 3 % (1-6); LYMPHOCYTES % (MANUAL) 13 % (22-44); MAN.DIFF COMMENT-IMPRESSION MANUAL DIFFERENTIAL; MONOCYTES % (MANUAL) 3 % (2-9); PLATELET MORPHOLOGY COMMENT ADEQUATE; SEGMENTED NEUTROPHILS % 81 % (40-70)
[2020-11-08] MEDS: LEVOTHYROXINE 50 MCG TABLET PO SCH (05:17)
[2020-11-08] MEDS: HYDRALAZINE 25MG TABLET PO SCH ×3 (05:17→20:55)
[2020-11-08 08:50] LABS: APPEARANCE,URINE Clear (CLEAR); BILIRUBIN,URINE Negative (NEGATIVE); COLOR,URINE Yellow (YELLOW); GLUCOSE, URINE (UA) Negative (NEGATIVE); KETONES,URINE Negative (NEGATIVE); LEUKOCYTE ESTERASE ,URINE Negative (NEGATIVE); NITRATE,URINE Negative (NEGATIVE); OCCULT BLOOD,URINE Negative (NEGATIVE); PROTEIN,URINE POS 2+ mg/dL (NEGATIVE); UROBILINOGEN,URINE 0.2 mg/dL (0.2-1.0)
[2020-11-08] MEDS: CHOLECALCIFEROL 125 MCG PO SCH (09:00)
[2020-11-08 09:08] LABS: RBC,URINE 0-1 /HPF (0-1); WBC,URINE 0-1 /HPF (0-1)
[2020-11-08 09:09] LABS: BACTERIA,URINE Moderate /HPF (None Seen); SQUAMOUS EPITHELIAL CELL,UR 0-2 /HPF (0-2)
[2020-11-08] MEDS: Vitamin B Complex/Vit C/Folic Acid PO SCH (10:10)
[2020-11-08] MEDS: CALCIUM AC 667MG CAP PO SCH ×3 (10:11→17:03)
[2020-11-08] MEDS: ALLOPURINOL 100 MG TABLET PO SCH (10:11)
[2020-11-08] MEDS: BUMETANIDE 1MG/4ML VIAL IVP SCH ×2 (10:11→20:47)
[2020-11-08] MEDS: ASPIRIN 81MG CHEW TAB PO SCH (10:11)
[2020-11-08] MEDS: CARVEDILOL 6.25 MG TABLET PO SCH ×2 (10:11→20:53)
[2020-11-08] MEDS: AMLODIPINE 5 MG TAB PO SCH (10:12)
[2020-11-08] MEDS: HONEY 1 APPL/ML TUBE TP SCH ×2 (10:12→20:55)
[2020-11-08] MEDS: METOLAZONE 2.5 MG TABLET PO SCH (12:31)
[2020-11-08 12:36] LABS: GLUCOSE,BODY FLUID 135 mg/dL (1-40)
[2020-11-08 13:58] LABS: SPECIMENTYPE,BODY FLUID THORACENTESIS
[2020-11-08 13:59] LABS: APPEARANCE BODY FLUID CLEAR (CLEAR); BODY FLUID RBC 4080 /cu. mm.; BODY FLUID WBC 10 /cu. mm.; COLOR,BODY FLUID ORANGE (LT YELLOW); TOTAL VOLUME,BODY FLUID 23 mL
[2020-11-08 14:02] LABS: BF EOSINOPHIL 2 %; BF LYMPHOCYTE 52 %; BF MESOTHELIAL 19 %; BF MONOCYTE 3 %
[2020-11-08] MEDS: FAMOTIDINE 20MG TAB PO SCH (20:53)
[2020-11-09] VITALS (24 sets, daily range): BP systolic 89–174; BP diastolic 43–80
[2020-11-09 04:16] LABS: HEMATOCRIT 25.4 % (42-54); MEAN CORPUSCULAR HEMOGLOBIN 29.5 pg (27.0-33.0); MEAN CORPUSCULAR HGB CONC 32.3 g/dL (32.0-36.0); MEAN CORPUSCULAR VOLUME 91.4 fL (79-99); PLATELET COUNT (AUTO) 182 K/uL (130-400); RED BLOOD CELL COUNT(AUTO) 2.78 MIL/uL (4.50-6.20); RED CELL DISTRIBUTION WIDTH 14.3 % (11.0-15.5)
[2020-11-09 04:30] LABS: INR 1.03 (0.85-1.15); PROTHROMBIN TIME 11.2 SEC (9.6-11.6)
[2020-11-09 04:31] LABS: PARTIAL THROMBOPLASTIN TIME 31.6 SEC (26.3-35.5)
[2020-11-09 04:50] LABS: LYMPHOCYTES % (MANUAL) 14 % (22-44); SEGMENTED NEUTROPHILS % 86 % (40-70)
[2020-11-09 04:51] LABS: MAN.DIFF COMMENT-IMPRESSION MANUAL DIFFERENTIAL; PLATELET MORPHOLOGY COMMENT ADEQUATE
[2020-11-09 04:56] LABS: CREATININE 7.1 mg/dL (0.5-1.5); POTASSIUM 3.6 mmol/L (3.5-5.1)
[2020-11-09] MEDS: HYDRALAZINE 25MG TABLET PO SCH ×3 (05:55→21:28)
[2020-11-09] MEDS: LEVOTHYROXINE 50 MCG TABLET PO SCH (05:55)
[2020-11-09] MEDS: CALCIUM AC 667MG CAP PO SCH ×3 (08:00→17:15)
[2020-11-09] MEDS: CHOLECALCIFEROL 125 MCG PO SCH (09:00)
[2020-11-09] MEDS: ALLOPURINOL 100 MG TABLET PO SCH (09:00)
[2020-11-09] MEDS: Vitamin B Complex/Vit C/Folic Acid PO SCH (09:00)
[2020-11-09] MEDS: ASPIRIN 81MG CHEW TAB PO SCH (09:00)
[2020-11-09] MEDS: CARVEDILOL 6.25 MG TABLET PO SCH ×2 (09:00→21:28)
[2020-11-09] MEDS: BUMETANIDE 1MG/4ML VIAL IVP SCH ×2 (09:17→21:28)
[2020-11-09] MEDS: AMLODIPINE 5 MG TAB PO SCH (09:21)
[2020-11-09] MEDS: HONEY 1 APPL/ML TUBE TP SCH ×2 (09:22→21:28)
[2020-11-09] MEDS ORDERED: INSULIN HUMULIN R 100 UNIT/ML 3ML SQ SCH (10:30)
[2020-11-09] MEDS ORDERED: LIDOCAINE HCL 400MG/20ML VIAL ONE (10:37)
[2020-11-09] MEDS ORDERED: HEPARIN 1,000 UNIT VIAL ONE (10:37)
[2020-11-09] MEDS ORDERED: SODIUM BICARB 50MEQ 50ML VIAL 50 ML ONE (10:37)
[2020-11-09 11:49] LABS: TOTAL PROTEIN, SERUM 6.3 g/dL (6.0-8.3)
[2020-11-09] MEDS: HEPARIN 5,000 UNIT VIAL SQ SCH ×2 (13:00→21:24)
[2020-11-09] MEDS: METOLAZONE 2.5 MG TABLET PO SCH (13:30)
[2020-11-09 16:10] LABS: HEMATOCRIT 28.1 % (42-54)
[2020-11-09 16:22] LABS: HEMOGLOBIN A1C 5.3 % (4.0-6.0)
[2020-11-09 16:33] LABS: % IRON SATURATION 10.7 % (30-44)
[2020-11-09 16:38] LABS: ALBUMIN 3.1 g/dL (3.5-5.0); CREATININE 5.4 mg/dL (0.5-1.5)
[2020-11-09] MEDS: 0.9%NACL 1000ML 1,000 ML IV PRN (16:42)
[2020-11-09] MEDS: HEPARIN 5,000 UNIT VIAL IJ PRN (18:24)
[2020-11-09] MEDS: FAMOTIDINE 20MG TAB PO SCH (21:28)
[2020-11-09] MEDS ORDERED: GLUCAGON 1MG KIT 1 MG ML IM PRN (22:30)
[2020-11-09] MEDS ORDERED: DEXTROSE 50%-WATER 50 ML DISP.SYRIN IV PRN (22:30)
[2020-11-09] MEDS: INSULIN HUMULIN R 100 UNIT/ML 3ML SQ SCH (23:05)
[2020-11-10] VITALS (19 sets, daily range): BP systolic 120–171; BP diastolic 60–161
[2020-11-10 05:38] LABS: BASOPHILS % (AUTO) 0.2 % (0.0-5.0); EOSINOPHILS % (AUTO) 1.5 % (0.0-8.0); HEMATOCRIT 26.6 % (42-54); LYMPHOCYTES % (AUTO) 8.5 % (21.0-51.0); MEAN CORPUSCULAR HEMOGLOBIN 29.9 pg (27.0-33.0); MEAN CORPUSCULAR HGB CONC 32.7 g/dL (32.0-36.0); MEAN CORPUSCULAR VOLUME 91.4 fL (79-99); MONOCYTES % (AUTO) 11.4 % (3.0-13.0); NEUTROPHILS % (AUTO) 77.8 % (40.0-77.0); PLATELET COUNT (AUTO) 191 K/uL (130-400); RED BLOOD CELL COUNT(AUTO) 2.91 MIL/uL (4.50-6.20); RED CELL DISTRIBUTION WIDTH 14.2 % (11.0-15.5); WHITE BLOOD COUNT (AUTO) 8.4 K/uL (4.8-10.8)
[2020-11-10] MEDS: LEVOTHYROXINE 50 MCG TABLET PO SCH (05:49)
[2020-11-10] MEDS: HYDRALAZINE 25MG TABLET PO SCH ×3 (05:49→22:20)
[2020-11-10] MEDS: HEPARIN 5,000 UNIT VIAL SQ SCH ×3 (05:52→21:11)
[2020-11-10] MEDS: INSULIN HUMULIN R 100 UNIT/ML 3ML SQ SCH ×4 (06:10→21:00)
[2020-11-10 06:12] LABS: HEPATITIS A ANTIBODY IGM Negative (Negative); HEPATITIS B CORE IGM Negative (Negative); HEPATITIS Bs ANTIGEN SCREEN P Negative (Negative)
[2020-11-10 06:24] LABS: ALBUMIN 2.7 g/dL (3.5-5.0); BILIRUBIN,TOTAL 0.9 mg/dL (0.2-1.0); CREATININE 5.6 mg/dL (0.5-1.5); POTASSIUM 3.3 mmol/L (3.5-5.1); TOTAL PROTEIN, SERUM 6.4 g/dL (6.0-8.3)
[2020-11-10] MEDS ORDERED: INSULIN HUMULIN R 100 UNIT/ML 3ML SQ SCH (07:30)
[2020-11-10] MEDS: Vitamin B Complex/Vit C/Folic Acid PO SCH (08:07)
[2020-11-10] MEDS: CARVEDILOL 6.25 MG TABLET PO SCH ×2 (08:07→19:51)
[2020-11-10] MEDS: CHOLECALCIFEROL 125 MCG PO SCH (08:07)
[2020-11-10] MEDS: ASPIRIN 81MG CHEW TAB PO SCH (08:07)
[2020-11-10] MEDS: ALLOPURINOL 100 MG TABLET PO SCH (08:07)
[2020-11-10] MEDS: BUMETANIDE 1MG/4ML VIAL IVP SCH (08:07)
[2020-11-10] MEDS: CALCIUM AC 667MG CAP PO SCH ×3 (08:07→16:34)
[2020-11-10] MEDS: HONEY 1 APPL/ML TUBE TP SCH ×2 (08:08→21:12)
[2020-11-10] MEDS: AMLODIPINE 5 MG TAB PO SCH (08:08)
[2020-11-10] MEDS: 0.9%NACL 1000ML 1,000 ML IV PRN (09:10)
[2020-11-10] MEDS: HEPARIN 5,000 UNIT VIAL IJ PRN (09:14)
[2020-11-10] MEDS: METOLAZONE 2.5 MG TABLET PO SCH (13:25)
[2020-11-10] MEDS: FAMOTIDINE 20MG TAB PO SCH (19:50)
[2020-11-11 04:00] VITALS: BP 159/81
[2020-11-11] MEDS: HYDRALAZINE 25MG TABLET PO SCH ×3 (05:11→21:19)
[2020-11-11] MEDS: LEVOTHYROXINE 50 MCG TABLET PO SCH (05:11)
[2020-11-11] MEDS: HEPARIN 5,000 UNIT VIAL SQ SCH ×3 (05:12→20:26)
[2020-11-11] MEDS: INSULIN HUMULIN R 100 UNIT/ML 3ML SQ SCH ×4 (05:39→20:00)
[2020-11-11 08:00] VITALS: BP 143/68
[2020-11-11] MEDS: ALLOPURINOL 100 MG TABLET PO SCH (08:34)
[2020-11-11] MEDS: AMLODIPINE 5 MG TAB PO SCH (08:34)
[2020-11-11] MEDS: Vitamin B Complex/Vit C/Folic Acid PO SCH (08:34)
[2020-11-11] MEDS: CALCIUM AC 667MG CAP PO SCH ×3 (08:34→16:01)
[2020-11-11] MEDS: ASPIRIN 81MG CHEW TAB PO SCH (08:34)
[2020-11-11] MEDS: CARVEDILOL 6.25 MG TABLET PO SCH ×2 (08:35→19:31)
[2020-11-11] MEDS: HONEY 1 APPL/ML TUBE TP SCH ×2 (08:35→20:01)
[2020-11-11] MEDS: CHOLECALCIFEROL 125 MCG PO SCH (08:35)
[2020-11-11 12:00] VITALS: BP_SYST 141; BP_SYST 162; BP_DIAS 48; BP_DIAS 68
[2020-11-11] MEDS: METOLAZONE 2.5 MG TABLET PO SCH (12:35)
[2020-11-11 16:00] VITALS: BP 158/45
[2020-11-11 17:08] LABS: HEPATITIS Bs ANTIGEN SCREEN P Negative (Negative)
[2020-11-11] MEDS: FAMOTIDINE 20MG TAB PO SCH (19:29)
[2020-11-11 20:00] VITALS: BP 152/46
[2020-11-11 23:25] VITALS: BP 160/47
[2020-11-12 03:31] VITALS: BP 172/49
[2020-11-12 04:58] LABS: BASOPHILS % (AUTO) 0.3 % (0.0-5.0); EOSINOPHILS % (AUTO) 3.1 % (0.0-8.0); HEMATOCRIT 26.2 % (42-54); LYMPHOCYTES % (AUTO) 12.9 % (21.0-51.0); MEAN CORPUSCULAR HGB CONC 32.8 g/dL (32.0-36.0); MEAN CORPUSCULAR VOLUME 91.3 fL (79-99); MONOCYTES % (AUTO) 11.2 % (3.0-13.0); PLATELET COUNT (AUTO) 204 K/uL (130-400); RED BLOOD CELL COUNT(AUTO) 2.87 MIL/uL (4.50-6.20); RED CELL DISTRIBUTION WIDTH 14.3 % (11.0-15.5); WHITE BLOOD COUNT (AUTO) 7.4 K/uL (4.8-10.8)
[2020-11-12 05:12] LABS: CREATININE 5.2 mg/dL (0.5-1.5); PHOSPHORUS 3.9 mg/dL (2.5-4.9); POTASSIUM 3.4 mmol/L (3.5-5.1)
[2020-11-12] MEDS: INSULIN HUMULIN R 100 UNIT/ML 3ML SQ SCH ×4 (05:24→21:00)
[2020-11-12] MEDS: LEVOTHYROXINE 50 MCG TABLET PO SCH (06:03)
[2020-11-12] MEDS: HYDRALAZINE 25MG TABLET PO SCH ×3 (06:03→21:00)
[2020-11-12] MEDS: HEPARIN 5,000 UNIT VIAL SQ SCH ×3 (06:16→21:00)
[2020-11-12 08:13] VITALS: BP 161/37
[2020-11-12] MEDS: CHOLECALCIFEROL 125 MCG PO SCH (09:00)
[2020-11-12] MEDS: Vitamin B Complex/Vit C/Folic Acid PO SCH (09:41)
[2020-11-12] MEDS: CALCIUM AC 667MG CAP PO SCH ×3 (09:41→16:14)
[2020-11-12] MEDS: ASPIRIN 81MG CHEW TAB PO SCH (09:42)
[2020-11-12] MEDS: AMLODIPINE 5 MG TAB PO SCH (09:42)
[2020-11-12] MEDS: CARVEDILOL 6.25 MG TABLET PO SCH ×2 (09:43→21:00)
[2020-11-12] MEDS: HONEY 1 APPL/ML TUBE TP SCH (09:43)
[2020-11-12] MEDS: ALLOPURINOL 100 MG TABLET PO SCH (09:43)
[2020-11-12] MEDS ORDERED: PHARMACY COMMUNICATION MISC SCH (10:00)
[2020-11-12 11:31] VITALS: BP 149/45
[2020-11-12] MEDS: METOLAZONE 2.5 MG TABLET PO SCH (12:04)
[2020-11-12] MEDS ORDERED: LEVOFLOXACIN 500 MG/D5W 100 ML 100 ML IV SCH (13:00)
[2020-11-12 16:55] VITALS: BP 150/28
[2020-11-12 20:27] VITALS: BP 169/63
[2020-11-12] MEDS: FAMOTIDINE 20MG TAB PO SCH (21:00)
[2020-11-12 23:34] VITALS: BP 166/46
[2020-11-13] VITALS (33 sets, daily range): BP systolic 122–171; BP diastolic 39–67
[2020-11-13] MEDS: HEPARIN 5,000 UNIT VIAL SQ SCH ×2 (05:00→20:46)
[2020-11-13 05:18] LABS: HEMATOCRIT 26.1 % (42-54); MEAN CORPUSCULAR HEMOGLOBIN 29.6 pg (27.0-33.0); MEAN CORPUSCULAR HGB CONC 32.2 g/dL (32.0-36.0); MEAN CORPUSCULAR VOLUME 91.9 fL (79-99); RED BLOOD CELL COUNT(AUTO) 2.84 MIL/uL (4.50-6.20); RED CELL DISTRIBUTION WIDTH 14.1 % (11.0-15.5); WHITE BLOOD COUNT (AUTO) 8.2 K/uL (4.8-10.8)
[2020-11-13 05:27] LABS: CREATININE 5.4 mg/dL (0.5-1.5); POTASSIUM 3.4 mmol/L (3.5-5.1)
[2020-11-13 05:33] LABS: INR 0.99 (0.85-1.15); PROTHROMBIN TIME 10.8 SEC (9.6-11.6)
[2020-11-13 05:34] LABS: PARTIAL THROMBOPLASTIN TIME 31.6 SEC (26.3-35.5)
[2020-11-13] MEDS: HYDRALAZINE 25MG TABLET PO SCH ×2 (06:00→20:48)
[2020-11-13] MEDS: LEVOTHYROXINE 50 MCG TABLET PO SCH (06:30)
[2020-11-13] MEDS: INSULIN HUMULIN R 100 UNIT/ML 3ML SQ SCH ×2 (07:30→21:00)
[2020-11-13] MEDS: CALCIUM AC 667MG CAP PO SCH ×3 (08:00→17:00)
[2020-11-13] MEDS: ASPIRIN 81MG CHEW TAB PO SCH (09:00)
[2020-11-13] MEDS: CHOLECALCIFEROL 125 MCG PO SCH (09:00)
[2020-11-13] MEDS: ALLOPURINOL 100 MG TABLET PO SCH (09:00)
[2020-11-13] MEDS: Vitamin B Complex/Vit C/Folic Acid PO SCH (09:00)
[2020-11-13] MEDS: AMLODIPINE 5 MG TAB PO SCH (09:19)
[2020-11-13] MEDS: CARVEDILOL 6.25 MG TABLET PO SCH ×2 (09:19→20:49)
[2020-11-13] MEDS ORDERED: CEFAZOLIN SODIUM 1 GM VIAL ONE ×2 (10:38→11:15)
[2020-11-13] MEDS ORDERED: CEFAZOLIN SODIUM 1 GM VIAL IVP PRN (11:00)
[2020-11-13] MEDS ORDERED: SUCCINYLCHOLINE CHLORIDE 20 MG/ML 10 ML VIAL ONE (11:01)
[2020-11-13] MEDS ORDERED: NEOSTIGMINE 5MG/5ML SYR IV ONE (11:02)
[2020-11-13] MEDS ORDERED: MIDAZOLAM HCL 1 MG/ML 2ML VIAL ONE (11:02)
[2020-11-13] MEDS ORDERED: PROPOFOL 10 MG/ML 20ML VIAL IV ONE (11:02)
[2020-11-13] MEDS ORDERED: DEXAMETHASONE SOD PHOSPHATE 10MG/ML 1ML VIAL ONE (11:02)
[2020-11-13] MEDS ORDERED: LIDOCAINE PF 100MG/5ML (2%) SYRINGE 5ML ONE (11:02)
[2020-11-13] MEDS ORDERED: ROCURONIUM 10MG/1ML SYR 10 MG/ML ML ONE (11:02)
[2020-11-13] MEDS ORDERED: GLYCOPYRROLATE 1 MG/5 ML SYRINGE ONE (11:02)
[2020-11-13] MEDS ORDERED: ONDANSETRON 4MG INJ ONE (11:02)
[2020-11-13] MEDS ORDERED: FENTANYL CITRATE PF 50 MCG/1 ML 2ML VIAL ONE (11:03)
[2020-11-13] MEDS ORDERED: KETAMINE 50MG/ML SYRINGE 50 MG/ML DISP.SYRIN IV ONE (11:07)
[2020-11-13] MEDS ORDERED: SUGAMMADEX SODIUM 200 MG/2 ML VIAL IV ONE (11:25)
[2020-11-13] MEDS ORDERED: EPHEDRINE SULFATE 50 MG/ML AMPULE ONE (11:25)
[2020-11-13] MEDS ORDERED: EPOETIN ALFA-EPBX (ESRD) 10,000 UNIT/ML VIAL SQ SCH (11:30)
[2020-11-13] MEDS ORDERED: LABETALOL 20MG VIAL IV PRN (11:30)
[2020-11-13] MEDS ORDERED: LIDOCAINE HCL 1% 20 ML VIAL ONE (11:36)
[2020-11-13] MEDS ORDERED: BUPIVACAINE/PF 0.5% 30ML VIAL ONE (11:36)
[2020-11-13] MEDS ORDERED: PROTAMINE SULFATE 10 MG/ML 25ML VIAL IV ONE (11:53)
[2020-11-13] MEDS ORDERED: HEPARIN 10,000 UNIT/10ML (1,000 UNIT/ML) VIAL ONE (11:53)
[2020-11-13] MEDS: 0.9%NACL 1000ML 1,000 ML IV PRN (15:12)
[2020-11-13] MEDS: HEPARIN 5,000 UNIT VIAL IJ PRN (15:16)
[2020-11-13] MEDS ORDERED: TRAMADOL HCL 50 MG TABLET PO PRN ×2 (20:00)
[2020-11-13] MEDS: FAMOTIDINE 20MG TAB PO SCH (20:48)
[2020-11-14] VITALS (14 sets, daily range): BP systolic 133–170; BP diastolic 39–67
[2020-11-14] MEDS: HEPARIN 5,000 UNIT VIAL SQ SCH (05:00)
[2020-11-14 05:43] LABS: BASOPHILS % (AUTO) 0.1 % (0.0-5.0); HEMATOCRIT 28.2 % (42-54); LYMPHOCYTES % (AUTO) 6.7 % (21.0-51.0); MEAN CORPUSCULAR HEMOGLOBIN 29.5 pg (27.0-33.0); MEAN CORPUSCULAR HGB CONC 32.3 g/dL (32.0-36.0); MEAN CORPUSCULAR VOLUME 91.6 fL (79-99); MONOCYTES % (AUTO) 7.4 % (3.0-13.0); NEUTROPHILS % (AUTO) 85.3 % (40.0-77.0); PLATELET COUNT (AUTO) 240 K/uL (130-400); RED BLOOD CELL COUNT(AUTO) 3.08 MIL/uL (4.50-6.20); RED CELL DISTRIBUTION WIDTH 14.6 % (11.0-15.5); WHITE BLOOD COUNT (AUTO) 8.3 K/uL (4.8-10.8)
[2020-11-14 05:59] LABS: ALBUMIN 2.5 g/dL (3.5-5.0); BILIRUBIN,TOTAL 0.3 mg/dL (0.2-1.0); CREATININE 4.1 mg/dL (0.5-1.5); POTASSIUM 4.4 mmol/L (3.5-5.1); TOTAL PROTEIN, SERUM 6.5 g/dL (6.0-8.3)
[2020-11-14] MEDS: LEVOTHYROXINE 50 MCG TABLET PO SCH (06:06)
[2020-11-14] MEDS: HYDRALAZINE 25MG TABLET PO SCH ×2 (06:07→17:24)
[2020-11-14] MEDS: INSULIN HUMULIN R 100 UNIT/ML 3ML SQ SCH ×3 (06:08→16:30)
[2020-11-14] MEDS ORDERED: LEVOFLOXACIN 500 MG/D5W 100 ML 100 ML IV SCH (09:00)
[2020-11-14] MEDS: CHOLECALCIFEROL 125 MCG PO SCH (09:00)
[2020-11-14] MEDS ORDERED: LOSARTAN 25 MG TABLET PO SCH (09:00)
[2020-11-14] MEDS: ASPIRIN 81MG CHEW TAB PO SCH (09:09)
[2020-11-14] MEDS: Vitamin B Complex/Vit C/Folic Acid PO SCH (09:10)
[2020-11-14] MEDS: AMLODIPINE 5 MG TAB PO SCH (09:10)
[2020-11-14] MEDS: CALCIUM AC 667MG CAP PO SCH ×2 (09:11→17:23)
[2020-11-14] MEDS: ALLOPURINOL 100 MG TABLET PO SCH (09:12)
[2020-11-14] MEDS: CARVEDILOL 6.25 MG TABLET PO SCH (09:13)
[2020-11-14] MEDS ORDERED: EPOETIN ALFA-EPBX (ESRD) 10,000 UNIT/ML VIAL SQ SCH (09:30)
[2020-11-14] MEDS ORDERED: LOSA50TA64 PO (09:48)
[2020-11-14] MEDS ORDERED: Calcium Ac 667MG Cap PO (09:48)
[2020-11-14] MEDS ORDERED: LEVO500T89 PO (09:48)
[2020-11-14] MEDS ORDERED: ALLO100T PO (09:48)
[2020-11-14] MEDS ORDERED: TRAM50TA4 PO (09:48)
[2020-11-14] MEDS ORDERED: HYDR25 PO (09:48)
[2020-11-14] MEDS: 0.9%NACL 1000ML 1,000 ML IV PRN (15:03)
== END 2020-11-14 17:52 | disposition home or self-care (01) | DRG 673 ==
LOC: EDH 11:17 → EDHIP 15:02 → OBSVTOIN 15:02 → 4BH 20:22 → 3AH 11-10 05:37
PROVIDERS: ADMIT Internal Medicine; ATTEND Internal Medicine
PROC: 5A09357 Assistance with Respiratory Ventilation, Less than 24 Consecutive Hours, Continuous Positive Airway Pressure (ICD-10-PCS; 2020-10-30)
PROC: 5A09357 Assistance with Respiratory Ventilation, Less than 24 Consecutive Hours, Continuous Positive Airway Pressure (ICD-10-PCS; 2020-10-31)
PROC: 5A09357 Assistance with Respiratory Ventilation, Less than 24 Consecutive Hours, Continuous Positive Airway Pressure (ICD-10-PCS; 2020-11-01)
PROC: 5A09357 Assistance with Respiratory Ventilation, Less than 24 Consecutive Hours, Continuous Positive Airway Pressure (ICD-10-PCS; 2020-11-02)
PROC: 5A09357 Assistance with Respiratory Ventilation, Less than 24 Consecutive Hours, Continuous Positive Airway Pressure (ICD-10-PCS; 2020-11-03)
PROC: 5A09357 Assistance with Respiratory Ventilation, Less than 24 Consecutive Hours, Continuous Positive Airway Pressure (ICD-10-PCS; 2020-11-04)
PROC: 5A09357 Assistance with Respiratory Ventilation, Less than 24 Consecutive Hours, Continuous Positive Airway Pressure (ICD-10-PCS; 2020-11-05)
PROC: 0W993ZZ Drainage of Right Pleural Cavity, Percutaneous Approach (ICD-10-PCS; principal; 2020-11-08)
PROC: 0JH63XZ Insertion of Tunneled Vascular Access Device into Chest Subcutaneous Tissue and Fascia, Percutaneous Approach (ICD-10-PCS; 2020-11-09)
PROC: 02H633Z Insertion of Infusion Device into Right Atrium, Percutaneous Approach (ICD-10-PCS; 2020-11-09)
PROC: B548ZZA Ultrasonography of Superior Vena Cava, Guidance (ICD-10-PCS; 2020-11-09)
PROC: B5181ZA Fluoroscopy of Superior Vena Cava using Low Osmolar Contrast, Guidance (ICD-10-PCS; 2020-11-09)
PROC: 5A1D70Z Performance of Urinary Filtration, Intermittent, Less than 6 Hours Per Day (ICD-10-PCS; 2020-11-09)
PROC: 5A1D70Z Performance of Urinary Filtration, Intermittent, Less than 6 Hours Per Day (ICD-10-PCS; 2020-11-10)
PROC: 031C0ZF Bypass Left Radial Artery to Lower Arm Vein, Open Approach (ICD-10-PCS; 2020-11-13)
PROC: 5A1D70Z Performance of Urinary Filtration, Intermittent, Less than 6 Hours Per Day (ICD-10-PCS; 2020-11-13)
PROC: 5A1D70Z Performance of Urinary Filtration, Intermittent, Less than 6 Hours Per Day (ICD-10-PCS; 2020-11-14)
DX: N17.9 Acute kidney failure, unspecified (principal); I50.43 Acute on chronic combined systolic (congestive) and diastolic (congestive) heart failure; J18.9 Pneumonia, unspecified organism; I13.2 Hypertensive heart and chronic kidney disease with heart failure and with stage 5 chronic kidney disease, or end stage renal disease; L03.90 Cellulitis, unspecified; N39.0 Urinary tract infection, site not specified; N18.6 End stage renal disease; D63.8 Anemia in other chronic diseases classified elsewhere; F14.10 Cocaine abuse, uncomplicated; Z20.822 Contact with and (suspected) exposure to COVID-19; B96.1 Klebsiella pneumoniae [K. pneumoniae] as the cause of diseases classified elsewhere; E03.9 Hypothyroidism, unspecified; E11.22 Type 2 diabetes mellitus with diabetic chronic kidney disease; E78.5 Hyperlipidemia, unspecified; Z99.2 Dependence on renal dialysis; Z91.15 Patient's noncompliance with renal dialysis; Z91.14 Patient's other noncompliance with medication regimen; Z91.19 Patient's noncompliance with other medical treatment and regimen; Z83.3 Family history of diabetes mellitus; Z82.49 Family history of ischemic heart disease and other diseases of the circulatory system
CPT/HCPCS: 32554; 36415; 36558; 71045; 76700; 76770; 77001; 80048; 80053; 80061; 80074; 80305; 81001; 82040; 82550; 82565; 82570; 82728; 82945; 82948; 83036; 83540; 83550; 83615; 83735; 83874; 83880; 84100; 84145; 84155; 84156; 84157; 84484; 84520; 84550; 85014; 85018; 85025; 85027; 85610; 85730; 86701; 86704; 86706; 86850; 86900; 86901; 87071; 87077; 87088; 87186; 87205; 87340; 87390; 87635; 89051; 90935; 93005; 93306; 93356; 93970; 93971; 94660; 94760; C1729; C1750; C9803; G0378; J0330; J0360; J0690; J1100; J1644; J1756; J1815; J1940; J1956; J2001; J2250; J2405; J2704; J2710; J2720; J3010; J3490; J7030

== ENCOUNTER 2023-03-10 06:22 | Day surgery (SDC) | payer OTHER, MEDICARE ==
[2023-03-09 09:03] LABS: BASOPHILS # (AUTO) 0.04 K/uL (0.00-0.20); BASOPHILS % (AUTO) 0.4 % (0.0-5.0); EOSINOPHILS # (AUTO) 0.31 K/uL (0.00-0.70); EOSINOPHILS % (AUTO) 2.7 % (0.0-8.0); HEMATOCRIT 37.2 % (42-54); IMMATURE GRANULOCYTE ABSOLUTE 0.07 K/uL (0-1); LYMPHOCYTES # (AUTO) 1.5 K/uL (1.0-4.8); LYMPHOCYTES % (AUTO) 13.4 % (21.0-51.0); MEAN CORPUSCULAR HEMOGLOBIN 32.4 pg (27.0-33.0); MEAN CORPUSCULAR HGB CONC 34.4 g/dL (32.0-36.0); MEAN CORPUSCULAR VOLUME 94.2 fL (79-99); MONOCYTES # (AUTO) 0.6 K/uL (0.1-1.0); MONOCYTES % (AUTO) 5.4 % (3.0-13.0); NEUTROPHILS # (AUTO) 8.8 K/uL (1.8-7.7); NEUTROPHILS % (AUTO) 77.5 % (40.0-77.0); PLATELET COUNT (AUTO) 241 K/uL (130-400); RED BLOOD CELL COUNT(AUTO) 3.95 MIL/uL (4.50-6.20); RED CELL DISTRIBUTION WIDTH 13.4 % (11.0-15.5); WHITE BLOOD COUNT (AUTO) 11.4 K/uL (4.8-10.8)
[2023-03-09 09:14] LABS: CREATININE 4.9 mg/dL (0.5-1.5); POTASSIUM 4.6 mmol/L (3.5-5.1)
[2023-03-09 09:17] LABS: INR <= 0.93 (0.85-1.15); PROTHROMBIN TIME 10.8 SEC (9.6-11.6)
[2023-03-09 09:18] LABS: PARTIAL THROMBOPLASTIN TIME 28.3 SEC (26.3-35.5)
[2023-03-09 09:24] VITALS: BP 153/61; PULSE 73; RESP 15
[2023-03-10] VITALS (19 sets, daily range): BP systolic 145–176; BP diastolic 40–78; PULSE 63–74; RESP 13–18
[~2023-03-10] VITALS: Ht 167.6 cm; Wt 72.7 kg
[~2023-03-10 06:22] MED LIST changes: -AMLO-257 PO; +AMLO-258 PO; +CARV12.511 PO; +CHOL200074 PO; +DAPA5TAB PO; -FERR-82 PO; -FOLI0.8T22 PO; +FOLI1TAB85 PO; -GLIP5TAB11 PO; -LABE200T5 PO; -LEVO250T59 PO; +LEVO50CA4 PO; -TERA5CAP4 PO
[2023-03-10] MEDS ORDERED: 0.9% NACL 500ML IV.SOLN 500 ML IV ONE (06:47)
[2023-03-10] MEDS ORDERED: CEFAZOLIN SODIUM 2 GM VIAL ONE (06:47)
[2023-03-10] MEDS ORDERED: BUPIVACAINE/PF 0.25% 30ML VIAL IJ ONE ×2 (07:13→08:27)
[2023-03-10] MEDS ORDERED: PROPOFOL 10 MG/ML 20ML VIAL IV ONE (07:31)
[2023-03-10] MEDS ORDERED: FENTANYL CITRATE PF 50 MCG/1 ML 2ML VIAL ONE (07:31)
[2023-03-10] MEDS ORDERED: LIDOCAINE PF 100MG/5ML (2%) SYRINGE 5ML ONE (07:31)
[2023-03-10] MEDS ORDERED: MIDAZOLAM HCL 1 MG/ML 2ML VIAL ONE (07:31)
[2023-03-10] MEDS ORDERED: CEFAZOLIN SODIUM 2 GM VIAL IVPB ONE (08:20)
[2023-03-10] MEDS ORDERED: EPHEDRINE SULFATE 50 MG/ML AMPULE ONE (08:30)
[2023-03-10] MEDS ORDERED: METH-662 PO (09:09)
[2023-03-10] MEDS ORDERED: TRAM50TA4 PO (09:09)
[2023-03-10] MEDS ORDERED: GABA-529 PO (09:09)
[2023-03-10] MEDS ORDERED: DOCU-116 PO (09:09)
== END 2023-03-10 11:15 | disposition home or self-care (01) ==
LOC: DAH 06:22
PROVIDERS: ATTEND Surgery
DX: D17.1 Benign lipomatous neoplasm of skin and subcutaneous tissue of trunk (principal); Z79.01 Long term (current) use of anticoagulants; Z79.899 Other long term (current) drug therapy; Z79.82 Long term (current) use of aspirin
CPT/HCPCS: 93005; 80048 ×2; 85025; 85610; 85730; 36415 ×2; 21933; 82948; 88304; 88305; A6260; A4663; J7040; J3010; J0665 ×2; J2001; J3490; J2250; J2704; J0690 ×2; A4930; A4215; A4223; A4222; A4221